=== PATIENT | female | born 1955 | race Caucasian/White ===

== ENCOUNTER 2016-07-29 07:53 | Day surgery (SDC) | payer MEDICARE ==
[2016-07-29] MEDS ORDERED: DIPRIVAN 200 MG/20 ML IV ONE (10:00)
--- NOTE | 2016-07-29 11:25 | XRAY ---
Indication: Left SI injection. Intraoperative fluoroscopy was provided for 19 seconds. 2 digital spot images submitted for interpretation demonstrates posterior spinal needle with the tip projecting over the superior left SI joint. Small amount of contrast injected for needle tip placement. Correlate with intraoperative findings/report.
--- NOTE | 2016-07-29 13:18 | XRAY ---
19 seconds of fluoroscopy was used in surgery for a left SI injection.
[2016-07-29] MEDS ORDERED: Lactated Ringers IV ONE (14:55)
[2016-07-29] MEDS ORDERED: Sensorcaine 0.25% 10 ML IJ ONE (14:55)
[2016-07-29] MEDS ORDERED: Kenalog-40 IM ONE (14:55)
[2016-07-29] MEDS ORDERED: Xylocaine-Mpf 2% 5 Ml Vial IJ ONE (14:55)
== END 2016-07-29 11:20 | disposition home or self-care (01) ==
LOC: SDC-PAIN 07:53
PROVIDERS: ATTEND Pain Medicine Interventional Pain Medicine
DX: M46.1 Sacroiliitis, not elsewhere classified (principal); M47.816 Spondylosis without myelopathy or radiculopathy, lumbar region; M51.26 Other intervertebral disc displacement, lumbar region; Z79.891 Long term (current) use of opiate analgesic
CPT/HCPCS: 01992; 27096; 72020; 77003; J2704; J3301; Q9967

== ENCOUNTER 2017-05-26 12:01 | Day surgery (SDC) | payer MEDICARE ==
[2017-05-26] MEDS ORDERED: DIPRIVAN 200 MG/20 ML IV ONE (12:02)
[2017-05-26] MEDS ORDERED: Lactated Ringers 1,000 ML IV ONE (12:02)
[2017-05-26] MEDS ORDERED: Marcaine 0.5% SDV 10 ML IJ ONE (12:02)
[2017-05-26] MEDS ORDERED: Xylocaine 1% Vial 30 ML PF IJ ONE (12:02)
--- NOTE | 2017-05-26 13:43 | XRAY ---
23 seconds fluoroscopy time in surgery for right MBB L3-4.
--- NOTE | 2017-05-26 13:47 | XRAY ---
Indication: Right L3-L4 MBB. Intraoperative fluoroscopy was provided for 23 seconds. 2 digital spot images submitted for interpretation demonstrates posterior spinal needle tips projecting over the expected course of the right L3 and L4 nerve roots. Correlate with intraoperative findings/report.
--- NOTE | 2017-05-26 15:31 | OP ---
DATE OF PROCEDURE: 05/26/2017 1228 SURGEON: Peace Carlson D.O. PREOPERATIVE DIAGNOSIS: Degenerative lumbar spine disease, spondylosis, low back pain. POSTOPERATIVE DIAGNOSIS: Degenerative lumbar spine disease, spondylosis, low back pain. PROCEDURES PERFORMED: Right L4-L3 medial branch block under fluoroscopic guidance. DESCRIPTION OF THE PROCEDURE: The patient was taken to the operating room and placed in the prone position on the table. Skin at the injection site was prepped and draped in sterile fashion. Under fluoroscopy, bony anatomy of the targeted injection site was visualized. Induction agent was given as per anesthesia while vital signs were monitored. Local anesthetic agent was introduced to anesthetize the skin and the subcutaneous tissue through the injection site. Under fluoroscopic guidance, a #20 gauge spinal needle was advanced into the target medial branch through the oblique approach. 0.5 cc of 1% lidocaine and 0.5 cc of 0.25% Marcaine preservative-free was injected into each of the targeted medial branch nerve. After the needle was being removed, the skin was cleansed with alcohol and then a bandage was applied. No complications or adverse consequences were observed. The patient was returned to the holding area until stabilized before discharge to home. After the patient has been fully recovered from anesthesia, the patient states 100% pain relief after the procedure. The patient will be followed up within ten days after the injection for re-evaluation.
== END 2017-05-26 13:15 | disposition home or self-care (01) ==
LOC: SDC-PAIN 12:01
PROVIDERS: ATTEND Internal Medicine
DX: M46.96 Unspecified inflammatory spondylopathy, lumbar region (principal); M54.5 Low back pain; M62.838 Other muscle spasm; Z79.891 Long term (current) use of opiate analgesic
CPT/HCPCS: 64493; 72020; 77003; J2001; J2704

== ENCOUNTER 2017-06-09 10:36 | Day surgery (SDC) | payer MEDICARE ==
[2017-06-09] MEDS ORDERED: Lactated Ringers 1,000 ML IV ONE (10:37)
[2017-06-09] MEDS ORDERED: Xylocaine 1% Vial 30 ML PF IJ ONE (10:37)
[2017-06-09] MEDS ORDERED: DIPRIVAN 200 MG/20 ML IV ONE (10:37)
[2017-06-09] MEDS ORDERED: Marcaine 0.5% SDV 10 ML IJ ONE (10:37)
--- NOTE | 2017-06-09 14:55 | OP ---
DATE OF PROCEDURE: 06/09/2017 1145 SURGEON: Peace Carlson D.O. PREOPERATIVE DIAGNOSIS: Degenerative lumbar spine disease, spondylosis, low back pain. POSTOPERATIVE DIAGNOSIS: Degenerative lumbar spine disease, spondylosis, low back pain. PROCEDURE PERFORMED: Right L4-L3 nerve medial branch block under fluoroscopic guidance. DESCRIPTION OF THE PROCEDURE: The patient was taken to the operating room and placed in the prone position on the table. Skin at the injection site was prepped and draped in sterile fashion. Under fluoroscopy, bony anatomy of the targeted injection site was visualized. Induction agent was given as per anesthesia while vital signs were monitored. Local anesthetic agent of 2 cc, 1% Lidocaine was introduced to anesthetize the skin and the subcutaneous tissue through the injection site. Under fluoroscopic guidance, a #20 gauge standard spinal needle was advanced into the target medial branch through the oblique approach. The preservative free 0.5 cc of 1% lidocaine and 0.5 cc of 0.25 - 0.5% Marcaine were injected into each of the targeted medial branch nerve. After the needle was being removed, the skin was cleansed with alcohol and then a bandage was applied. No complications or adverse consequences were observed. The patient was returned to the holding area until stabilized before discharge to home After the patient had been fully recovered from anesthesia, the patient states 70% pain reduction after the procedure. The patient will be followed up within ten days after the injection for re-evaluation.
--- NOTE | 2017-06-09 15:25 | XRAY ---
Indication: Right L3-L4 MBB. Intraoperative fluoroscopy was provided for 14 seconds. 3 digital spot images submitted for interpretation demonstrates posterior spinal needle tip projecting over the right L3-L4 facet. Correlate with intraoperative findings/report.
--- NOTE | 2017-06-09 15:37 | XRAY ---
14 seconds fluoroscopy time in surgery for right L3-4 MBB.
== END 2017-06-09 12:30 | disposition home or self-care (01) ==
LOC: SDC-PAIN 10:36
PROVIDERS: ATTEND Internal Medicine
DX: M47.816 Spondylosis without myelopathy or radiculopathy, lumbar region (principal); M46.96 Unspecified inflammatory spondylopathy, lumbar region; M54.5 Low back pain; M62.838 Other muscle spasm; Z79.891 Long term (current) use of opiate analgesic
CPT/HCPCS: 64493; 72020; 77003; J2001; J2704

== ENCOUNTER 2017-07-28 10:39 | Day surgery (SDC) | payer MEDICARE ==
[2017-07-28] MEDS ORDERED: Lactated Ringers 1,000 ML IV ONE (10:40)
[2017-07-28] MEDS ORDERED: DIPRIVAN 200 MG/20 ML IV ONE (10:40)
[2017-07-28] MEDS ORDERED: Ketamine HCl 50 MG/ML IV ONE (10:40)
[2017-07-28] MEDS ORDERED: Xylocaine-Mpf 2% 5 Ml Vial IJ ONE (10:40)
[2017-07-28] MEDS ORDERED: Marcaine 0.5% SDV 10 ML IJ ONE (10:40)
--- NOTE | 2017-07-28 12:15 | XRAY ---
Indication: Right L4-L5 RFA. Intraoperative fluoroscopy was provided for 16 seconds. Single digital spot image submitted for interpretation demonstrates posterior spinal needle tips projecting over the right L3 and L4 pedicles. Correlate with intraoperative findings/report.
--- NOTE | 2017-07-28 12:22 | XRAY ---
16 seconds fluoroscopy time in surgery for right L4-5 RFA.
--- NOTE | 2017-07-29 10:23 | OP ---
DATE OF PROCEDURE: 07/28/2017 1143 SURGEON: Peace Carlson D.O. PREOPERATIVE DIAGNOSIS: Degenerative lumbosacral spine disease, spondylosis, low back pain. POSTOPERATIVE DIAGNOSIS: Degenerative lumbosacral spine disease, spondylosis, low back pain. PROCEDURES PERFORMED: Right L4-L3 medial branch radiofrequency ablation under fluoroscopic guidance. DESCRIPTION OF PROCEDURE: The patient was taken to the operating room and laid in the prone position on the table. The skin over the injection site was prepped and draped in sterile fashion. Under fluoroscopy bony anatomy of the target injection site was visualized. Induction agent was given as per anesthesia while vital signs were monitored. Local anesthetic agent was introduced to anesthetize the skin and the subcutaneous tissue through the injection site. Under fluoroscopic guidance a standard size spinal needle with cannula was advanced into the target medial branch nerve as per standard protocol. Before the radiofrequency ablation motor and sensory nerve testing was conducted as per protocol. Under the safety guidance which ensured no motor nerves being involved, right L4-L3 medial branch radiofrequency ablation was conducted at 80 degrees Celsius for 90 seconds as per standard protocol. After the spinal needle with the cannula was removed the skin was cleansed with alcohol and then a bandage was applied. No complications or adverse occurrences were observed. The patient was returned to the holding area until stabilized before being discharged to home. The residual pain after the procedure is 0 out of 10. No muscle weakness after the procedure. The patient ambulated well. The patient will be followed up within 10 days after the procedure for re-evaluation.
== END 2017-07-28 12:30 | disposition home or self-care (01) ==
LOC: SDC-PAIN 10:39
PROVIDERS: ATTEND Internal Medicine
DX: M46.96 Unspecified inflammatory spondylopathy, lumbar region (principal); M54.5 Low back pain; M62.838 Other muscle spasm
CPT/HCPCS: 64635; 64636; 72020; 76000; J2704

== ENCOUNTER 2022-02-06 21:18 | Emergency (ER) | payer MEDICARE ==
[2022-02-06 21:45] VITALS: O2SAT 97
--- NOTE | 2022-02-06 22:17 | ERPHSYRPT ---
- History of Present Illness Time Seen by Provider: 02/06/22 21:35 Source: patient Exam Limitations: no limitations Patient Subjective Stated Complaint: pt states she has not been feeling well. has had cough, fever 100.1 at home, and back aches Triage Nursing Assessment: pt alert and oriented, answers questions approp. pt ambulatory with a steady gait noted. respirations nonlabored with coarse lung sounds noted bilat. skin warm and dry. Physician History: Patient is a 67-year-old female who presents with a complaint of chills and back pain for approximately 24 hours. She reports that she is out of medicine for he r fibromyalgia. And that her fibromyalgia is flaring. She reports chills and sweats last night she had a temperature 100.1 tonight she was 99 she could not get comfortable she been coughing nauseated vomiting. She has had no recent COVID test she was recently on steroids and a Z-Ramy for bronchitis. Timing/Duration: yesterday Cough Quality/Degree: productive cough Possible Cause: occasional episodes Associated Symptoms: fever, chills, cough, other (Nausea and vomiting) Allergies/Adverse Reactions: Penicillins Allergy (Verified 02/06/22 22:19) Sulfa (Sulfonamide Antibiotics) Allergy (Verified 02/06/22 22:19) Home Medications: Aspirin [Aspirin EC] 81 mg PO DAILY 02/07/16 [History] Pravastatin Sodium [Pravachol] 40 mg PO HS 02/07/16 [History] Pregabalin [Lyrica 100Mg] 150 mg PO BID 02/07/16 [History] Lisinopril 10 mg [Zestril 10 MG] 20 mg PO DAILY 08/11/16 [History] Meloxicam [Mobic] 7.5 mg PO DAILY 05/31/17 [History] Omeprazole 20 MG [Prilosec 20 mg] 20 mg PO DAILY 05/31/17 [History] Amlodipine Besylate 2.5 mg PO DAILY 02/06/22 [History] Metoprolol Succinate 50 mg [Toprol Xl 50 MG] 50 mg PO BID 02/06/22 [Hi story] Hx Tetanus, Diphtheria Vaccination/Date Given: No Hx Influenza Vaccination/Date Given: No Hx Pneumococcal Vaccination/Date Given: No Immunizations Up to Date: No Travel Risk - International Travel Have you traveled outside of the country in past 3 weeks: No - Coronavirus Screening Are you exhibiting any of the following symptoms?: Yes Symptoms: Fever, Cough: New Onset, Headaches/Body Aches/Fatigue Close contact with a COVID-19 positive Pt in past 14-21 Days: No - Vaccine Status Have you recieved a Covid-19 vaccination: No - Review of Systems Constitutional: Fever, Chills, Night Sweats Eyes: No Symptoms Ears, Nose, & Throat: No Symptoms Respiratory: Cough, No Dyspnea Cardiac: No Chest Pain, No Edema, No Syncope Abdominal/Gastrointestinal: Nausea, Vomiting, No Abdominal Pain, No Diarrhea Genitourinary Symptoms: No Dysuria Musculoskeletal: No Back Pain, No Neck Pain Skin: No Rash Neurological: No Dizziness, No Focal Weakness, No Sensory Changes Psychological: No Symptoms Endocrine: No Symptoms All Other Systems: Reviewed and Negative - Past Medical History Neurological History: Other Cardiac History: Coronary Artery Disease, High Cholesterol, Hypertension, Myocardial Infarction ([place]) Respiratory History: Asthma Endocrine Medical History: No Pertinent History Musculoskeletal History: Fibromyalgia, Osteoarthritis, Rheumatoid Arthritis Other Medical History: SX HX: LEFT THR 2018, LEFT ARTHROSCOPIC MENISCAL SURGERY 2017,. HYSTERECTOMY 20+ YEARS AGO - Past Surgical History Past Surgical History: Yes Musculoskeletal: Orthopedic Surgery Female Surgical History: Hysterectomy - Social History Smoking Status: Current every day smoker How long have you smoked: 50yrs Exposure to second hand smoke: No Drug Use: none Patient Lives Alone: No - Nursing Vital Signs Nursing Vital Signs: Initial Vital Signs Temperature 98.0 F 02/06/22 21:28 Pulse Rate 70 02/06/22 21:28 Respiratory Rate 16 02/06/22 21:28 Blood Pressure 189/84 02/06/22 21:28 O2 Sat by Pulse Oximetry 97 02/06/22 21:28 Pain Scale Pain Intensity 5 - Physical Exam General Appearance: mild distress, alert Eye Exam: PERRL/EOMI, eyes nml inspection Ears, Nose, Throat Exam: normal ENT inspection, TMs normal, pharynx normal, moist mucous membranes Neck Exam: normal inspection, non-tender, supple, full range of motion Respiratory Exam: normal breath sounds, lungs clear, No respiratory distress Cardiovascular Exam: regular rate/rhythm, normal heart sounds Gastrointestinal/Abdomen Exam: soft, No tenderness Back Exam: normal inspection, No CVA tenderness, No vertebral tenderness Extremity Exam: normal inspection, normal range of motion Neurologic Exam: alert, oriented x 3, cooperative, normal mood/affect, sensation nml, No motor deficits Skin Exam: normal color, warm, dry, No rash Lymphatic Exam: No adenopathy SpO2 Interpretation: normal SpO2: 97 O2 Delivery: Room Air - Course Nursing assessment & vital signs reviewed: Yes - Radiology Exams Chest X-ray Interpretation: Interpreted by me, Negative Ordered Tests: Active Orders 24 hr Category Date Time Status CHEST 1 VIEW (PORTABLE) Stat Exams 02/06/22 21:33 Taken CBC W DIFF Stat Lab 02/06/22 22:20 Completed CMP Stat Lab 02/06/22 22:20 Completed CULTURE,URINE Stat Lab 02/06/22 23:04 Received Lactic Acid Stat Lab 02/06/22 21:32 Completed UA W/RFX CULTURE Stat Lab 02/06/22 23:04 Completed Lab/Rad Data: Laboratory Result Diagrams 02/06/22 22:20 02/06/22 22:20 Laboratory Results 02/06/22 02/06/22 02/06/22 Range/Units 23:04 22:20 22:20 WBC (4.0-10.5) x10^3/uL RBC (4.1-5.4) x10^6/uL Hgb (12.0-16.0) g/dL Hct (35-47) % MCV (78-100) fL MCH (26-32) pg MCHC (32-36) g/dL RDW (11.5-14.0) % Plt Count (150-450) x10^3/uL MPV (7.5-11.0) fL Gran % (36.0-66.0) % Immature Gran % (Auto) (0.00-0.4) % Nucleat RBC Rel Count (0.00-0.1) % Eos # (Auto) (0-0.5) x10^3/uL Immature Gran # (Auto) (0.00-0.03) x10^3u/L Absolute Lymphs (auto) (1.0-4.6) x10^3/uL Absolute Monos (auto) (0.0-1.3) x10^3/uL Absolute Nucleated RBC (0.00-0.01) x10^3u/L Lymphocytes % (24.0-44.0) % Monocytes % (0.0-12.0) % Eosinophils % (0.00-5.0) % Basophils % (0.0-0.4) % Absolute Granulocytes (1.4-6.9) x10^3/uL Basophils # (0-0.4) x10^3/uL Sodium 138 (137-145) mmol/L Potassium 3.9 (3.5-5.1) mmol/L Chloride 107 (98-107) mmol/L Carbon Dioxide 26 (22-30) mmol/L Anion Gap 9.0 (5-15) MEQ/L BUN 11 (7-17) mg/dL Creatinine 0.85 (0.52-1.04) mg/dL Estimated GFR > 60.0 ML/MIN Glucose 109 H (74-106) mg/dL Lactic Acid (0.4-2.0) Calcium 9.1 (8.4-10.2) mg/dL Total Bilirubin 0.50 (0.2-1.3) mg/dL AST 24 (14-36) U/L ALT 16 (0-35) U/L Alkaline Phosphatase 102 (38-126) U/L Serum Total Protein 7.4 (6.3-8.2) g/dL Albumin 4.3 (3.5-5.0) g/dL Urinalys Dipstick Clnc MAIN LAB Urine Color YELLOW (YELLOW) Urine Appearance CLEAR (CLEAR) Urine pH 7.0 (5-6) Ur Specific [place] 1.025 (1.005-1.025) POC Urine Protein Conf 30 (Negative) Urine Ketones SMALL-15 (NEGATIVE) Urine Nitrite NEGATIVE (NEGATIVE) Urine Bilirubin NEGATIVE (NEGATIVE) Urine Urobilinogen 0.2 (0-1) mg/dL Urine Leukocytes SMALL (NEGATIVE) Urine WBC (Auto) 16-25 (0-5) /HPF Urine RBC (Auto) 6-10 (0-2) /HPF U Epithel Cells (Auto) RARE (FEW) /HPF Urine Bacteria (Auto) FEW (NEGATIVE) /HPF Urine RBC TRACE-LYSED (0-5) Erasto/ul Urine Mucus (Auto) SLIGHT (NEGATIVE) /HPF Ur Culture Indicated? YES Urine Glucose NEGATIVE (NEGATIVE) mg/dL Influenza Type A Ag NEGATIVE (NEGATIVE) Influenza Type B Ag NEGATIVE (NEGATIVE) RSV (PCR) NEGATIVE (Negative) SARS-CoV-2 (PCR) NEGATIVE (NEGATIVE) 02/06/22 02/06/22 Range/Units 22:20 21:32 WBC 7.2 (4.0-10.5) x10^3/uL RBC 3.99 L (4.1-5.4) x10^6/uL Hgb 12.4 (12.0-16.0) g/dL Hct 37.0 (35-47) % MCV 92.7 (78-100) fL MCH 31.1 (26-32) pg MCHC 33.5 (32-36) g/dL RDW 13.7 (11.5-14.0) % Plt Count 293 (150-450) x10^3/uL MPV 10.4 (7.5-11.0) fL Gran % 58.1 (36.0-66.0) % Immature Gran % (Auto) 0.3 (0.00-0.4) % Nucleat RBC Rel Count 0.0 (0.00-0.1) % Eos # (Auto) 0.07 (0-0.5) x10^3/uL Immature Gran # (Auto) 0.02 (0.00-0.03) x10^3u/L Absolute Lymphs (auto) 2.38 (1.0-4.6) x10^3/uL Absolute Monos (auto) 0.53 (0.0-1.3) x10^3/uL Absolute Nucleated RBC 0.00 (0.00-0.01) x10^3u/L Lymphocytes % 32.9 (24.0-44.0) % Monocytes % 7.3 (0.0-12.0) % Eosinophils % 1.0 (0.00-5.0) % Basophils % 0.4 (0.0-0.4) % Absolute Granulocytes 4.21 (1.4-6.9) x10^3/uL Basophils # 0.03 (0-0.4) x10^3/uL Sodium (137-145) mmol/L Potassium (3.5-5.1) mmol/L Chloride (98-107) mmol/L Carbon Dioxide (22-30) mmol/L Anion Gap (5-15) MEQ/L BUN (7-17) mg/dL Creatinine (0.52-1.04) mg/dL Estimated GFR ML/MIN Glucose (74-106) mg/dL Lactic Acid 0.8 (0.4-2.0) Calcium (8.4-10.2) mg/dL Total Bilirubin (0.2-1.3) mg/dL AST (14-36) U/L ALT (0-35) U/L Alkaline Phosphatase (38-126) U/L Serum Total Protein (6.3-8.2) g/dL Albumin (3.5-5.0) g/dL Urinalys Dipstick Clnc Urine Color (YELLOW) Urine Appearance (CLEAR) Urine pH (5-6) Ur Specific [place] (1.005-1.025) POC Urine Protein Conf (Negative) Urine Ketones (NEGATIVE) Urine Nitrite (NEGATIVE) Urine Bilirubin (NEGATIVE) Urine Urobilinogen (0-1) mg/dL Urine Leukocytes (NEGATIVE) Urine WBC (Auto) (0-5) /HPF Urine RBC (Auto) (0-2) /HPF U Epithel Cells (Auto) (FEW) /HPF Urine Bacteria (Auto) (NEGATIVE) /HPF Urine RBC (0-5) Erasto/ul Urine Mucus (Auto) (NEGATIVE) /HPF Ur Culture Indicated? Urine Glucose (NEGATIVE) mg/dL Influenza Type A Ag (NEGATIVE) Influenza Type B Ag (NEGATIVE) RSV (PCR) (Negative) SARS-CoV-2 (PCR) (NEGATIVE) - Progress Progress: unchanged Air Movement: good Blood Culture(s) Obtained: No Antibiotics given: Yes - Departure Departure Disposition: Home Clinical Impression: Urinary tract infection Condition: Stable Critical Care Time: No Referrals: LUISA MURRY MD [Primary Care Provider] - Follow up/PCP as directed Instructions: Fever, Adult (DC), Urinary Tract Infection, Adult (DC) Prescriptions: Ciprofloxacin [Cipro 500 MG] 500 mg PO BID #14 tablet Pregabalin [Lyrica 150Mg] 150 mg PO BID 30 Days #60 cap
[2022-02-06 22:31] LABS: Absolute Neutrophil Ct (ANC) 4.21 x10^3/uL (1.4-6.9); Basophil (Absolute #) 0.03 x10^3/uL (0-0.4); Eosinophil (Absolute #) 0.07 x10^3/uL (0-0.5); Hemoglobin 12.4 g/dL (12.0-16.0); Lymphocyte (Absolute #) 2.38 x10^3/uL (1.0-4.6); Lymphocytes % 32.9 % (24.0-44.0); Mean Cell Volume 92.7 fL (78-100); Mean Corpuscular Hemoglobin 31.1 pg (26-32); Mean Corpuscular Hgb Concent. 33.5 g/dL (32-36); Mean Platelet Volume 10.4 fL (7.5-11.0); Monocyte (Absolute #) 0.53 x10^3/uL (0.0-1.3); Monocytes % 7.3 % (0.0-12.0); Neutrophil % 58.1 % (36.0-66.0); Platelet Count 293 x10^3/uL (150-450); Red Blood Count 3.99 x10^6/uL (4.1-5.4); Red Cell Distribution Width 13.7 % (11.5-14.0); White Blood Count 7.2 x10^3/uL (4.0-10.5)
[2022-02-06 22:43] LABS: ALBUMIN 4.3 g/dL (3.5-5.0); ALKALINE PHOSPHATASE 102 U/L (38-126); BLOOD UREA NITROGEN 11 mg/dL (7-17); CHLORIDE 107 mmol/L (98-107); Calcium 9.1 mg/dL (8.4-10.2); Carbon Dioxide 26 mmol/L (22-30); Creatinine 1 0.85 mg/dL (0.52-1.04); EST GLOMERULAR FILTRATION RATE > 60.0 ML/MIN; Glucose 109 mg/dL (74-106); Potassium 3.9 mmol/L (3.5-5.1); SGOT/AST 24 U/L (14-36); SGPT/ALT 16 U/L (0-35); SODIUM 138 mmol/L (137-145); Total Protein 7.4 g/dL (6.3-8.2)
[2022-02-06 23:05] VITALS: PULSE 71
[2022-02-06 23:08] LABS: INFLUENZA A NEGATIVE (NEGATIVE); INFLUENZA B NEGATIVE (NEGATIVE); RESPIRATORY SYNCTIAL VIRUS NEGATIVE (Negative); SARS-CoV-2 Xpert Express NEGATIVE (NEGATIVE)
[2022-02-06 23:17] LABS: Appearance CLEAR (CLEAR)
[2022-02-06 23:18] LABS: Bilirubin NEGATIVE (NEGATIVE); Glucose NEGATIVE (NEGATIVE); Ketones SMALL-15 (NEGATIVE)
[2022-02-06 23:19] LABS: Dipstick done @ ? MAIN LAB; Nitrite NEGATIVE (NEGATIVE); Protein,Urine Dip 30 (Negative); RBC TRACE-LYSED Ery/ul (0-5); Specific Gravity 1.025 (1.005-1.025); Urobilinogen 0.2 mg/dL (0-1)
[2022-02-06 23:21] LABS: Bacteria FEW /HPF (NEGATIVE); Epithelial Cells RARE /HPF (FEW); Mucus SLIGHT /HPF (NEGATIVE)
[2022-02-06 23:22] LABS: Urine Cultured Indicated? YES
[2022-02-06] MEDS ORDERED: Cipro 500 MG PO STA (23:34)
[2022-02-06] MEDS ORDERED: LYRICA 150MG PO STA (23:35)
[2022-02-06] MEDS ORDERED: Cipro 500 MG ONE (23:44)
[2022-02-06 23:56] VITALS: BP 151/82
--- NOTE | 2022-02-07 08:09 | XRAY ---
Indication: Fever and cough. Suspect Covid 19. Comparison: August 16, 2020 Portable chest remains inflated and clear. Heart not enlarged. Bony thorax intact again with osteopenia and mild degenerative changes. No new/acute findings.
== END 2022-02-06 23:56 | disposition home or self-care (01) ==
LOC: ED 21:18
DX: N39.0 Urinary tract infection, site not specified (principal); R50.9 Fever, unspecified; M54.9 Dorsalgia, unspecified; R05.9 Cough, unspecified; R11.2 Nausea with vomiting, unspecified; E78.5 Hyperlipidemia, unspecified; I10 Essential (primary) hypertension; Z72.0 Tobacco use; Z79.899 Other long term (current) drug therapy; Z28.310 Unvaccinated for COVID-19
CPT/HCPCS: 0241U; 36415; 71045; 80053; 81015; 83605; 85025; 87086; 99283; A9270-GY

== ENCOUNTER 2023-01-05 14:41 | Emergency (ER) | payer MEDICARE ==
[2023-01-05 15:03] VITALS: BP 150/93; TEMP 99
[2023-01-05 15:04] VITALS: O2SAT 96
[2023-01-05] MEDS ORDERED: Sodium Chloride 0.9% 1000 ML 1,000 ML ONE (15:13)
[2023-01-05] MEDS ORDERED: Sodium Chloride 0.9% 1000 ML 1,000 ML IV SCH (15:15)
[2023-01-05 15:17] LABS: Absolute Neutrophil Ct (ANC) 4.14 x10^3/uL (1.4-6.9); BASOPHIL % 0.3 % (0.0-0.4); Basophil (Absolute #) 0.02 x10^3/uL (0-0.4); Eosinophil (Absolute #) 0 x10^3/uL (0-0.5); Hematocrit 39.8 % (35-47); Hemoglobin 13.4 g/dL (12.0-16.0); IMMATURE GRAN # 0.02 x10^3u/L (0.00-0.03); IMMATURE GRAN % 0.3 % (0.00-0.4); Lymphocyte (Absolute #) 1.86 x10^3/uL (1.0-4.6); Mean Cell Volume 93.6 fL (78-100); Mean Corpuscular Hemoglobin 31.5 pg (26-32); Mean Corpuscular Hgb Concent. 33.7 g/dL (32-36); Mean Platelet Volume 10.3 fL (7.5-11.0); Monocyte (Absolute #) 0.37 x10^3/uL (0.0-1.3); Monocytes % 5.8 % (0.0-12.0); Neutrophil % 64.6 % (36.0-66.0); Platelet Count 255 x10^3/uL (150-450); Red Blood Count 4.25 x10^6/uL (4.1-5.4); Red Cell Distribution Width 13.7 % (11.5-14.0); White Blood Count 6.4 x10^3/uL (4.0-10.5)
[2023-01-05] MEDS ORDERED: Zofran 4 MG/2 ML VIAL ONE (15:20)
[2023-01-05] MEDS ORDERED: Zofran 4 MG/2 ML VIAL IV ONE (15:20)
[2023-01-05 15:23] LABS: Appearance Clear (Clear); Bacteria None Seen /HPF (None Seen); Bilirubin Negative (Negative); Blood Moderate (Negative); Epithelial Cells Few /HPF (None Seen); Glucose, Urine Negative (Negative); Hyaline Casts NONE SEEN /LPF (0-2); Ketones 15 (Negative); Leukocyte Esterase Moderate (Negative); Nitrite Negative (Negative); Ph 6.5 (4.6-8.0); Protein,Urine Dip 300 (Negative); WBC 21-50 /HPF (0-5)
[2023-01-05 15:25] LABS: ADD URINE CULTURE? YES (NO)
[2023-01-05 15:37] LABS: ALBUMIN 4.5 g/dL (3.5-5.0); ALKALINE PHOSPHATASE 129 U/L (38-126); ANION GAP 14.5 MEQ/L (5-15); BLOOD UREA NITROGEN 13 mg/dL (7-17); CHLORIDE 104 mmol/L (98-107); Calcium 9.4 mg/dL (8.4-10.2); Carbon Dioxide 26 mmol/L (22-30); Creatinine 1 0.74 mg/dL (0.52-1.04); EST GLOMERULAR FILTRATION RATE > 60.0 ML/MIN; Glucose 116 mg/dL (74-106); LIPASE 65 U/L (23-300); Potassium 4.2 mmol/L (3.5-5.1); SGOT/AST 29 U/L (14-36); SGPT/ALT 17 U/L (0-35); SODIUM 140 mmol/L (137-145); Total Protein 7.4 g/dL (6.3-8.2)
--- NOTE | 2023-01-05 15:49 | ERPHSYRPT ---
- History of Present Illness Time Seen by Provider: 01/05/23 15:42 Historian: patient Exam Limitations: no limitations Patient Subjective Stated Complaint: Nausea Triage Nursing Assessment: Patient ambulated back to ED using cane and transferred self to bed. Patient A+O X3. Patient's skin pink, warm and dry. Patient complains of nausea, abdominal pain and headache since this am. Patient complains of slight non productive coigh. Patient states head and abdomen hurt 5/10. Abdomen soft and round. BS X 4. Patient denies vomiting or diarrhea. Physician History: Patient is a 67-year-old female presents to our emergency department for evaluation of abdominal pain, nausea, slight frontal headache and a cough. Symptoms started today. Patient states she feels unwell. Abdominal pain described as an ache that is generalized. Pain rated 5 out of 10. Patient admits to slight dysuria. No fever. No nausea vomiting or diaphoresis. No diarrhea. No rash. Symptoms are constant. Symptoms are moderate in intensity. No specific worsening improving factors. No sick contacts. Patient voices no other complaints or concerns at this time. Portions of this note were created with voice recognition technology. There may be grammatical, spelling, punctuation or sound alike errors Timing/Duration: today Activities at Onset: none Quality: aching Abdominal Pain Onset Location: generalized abdomen Pain Radiation: no radiation Severity of Pain-Max: moderate Severity of Pain-Current: mild Modifying Factors: Improves With: nothing Associated Symptoms: headache, No diarrhea (Frontal headache no neck pain. No photophobia. No meningeal signs.), No nausea, No vomiting Allergies/Adverse Reactions: Penicillins Allergy (Verified 01/05/23 14:56) Sulfa (Sulfonamide Antibiotics) Allergy (Verified 01/05/23 14:56) Home Medications: Aspirin [Aspirin EC] 81 mg PO DAILY 02/07/16 [History] Pravastatin Sodium [Pravachol] 40 mg PO HS 02/07/16 [History] Pregabalin [Lyrica 100Mg] 150 mg PO BID 02/07/16 [History] Lisinopril 10 mg [Zestril 10 MG] 20 mg PO DAILY 08/11/16 [History] Meloxicam [Mobic] 7.5 mg PO DAILY 05/31/17 [History] Omeprazole 20 MG [Prilosec 20 mg] 20 mg PO DAILY 05/31/17 [History] Amlodipine Besylate 2.5 mg PO DAILY 02/06/22 [History] Metoprolol Succinate 50 mg [Toprol Xl 50 MG] 50 mg PO BID 02/06/22 [ History] Hx Tetanus, Diphtheria Vaccination/Date Given: No Hx Influenza Vaccination/Date Given: No Hx Pneumococcal Vaccination/Date Given: No Immunizations Up to Date: Yes Travel Risk - International Travel Have you traveled outside of the country in past 3 weeks: No - Coronavirus Screening Are you exhibiting any of the following symptoms?: No Close contact with a COVID-19 positive Pt in past 14-21 Days: No - Vaccine Status Have you recieved a Covid-19 vaccination: No 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: [employer] - Review of Systems Constitutional: No Symptoms, No Fever, No Chills Eyes: No Symptoms Ears, Nose, & Throat: No Symptoms Respiratory: No Symptoms, No Cough, No Dyspnea Cardiac: No Symptoms, No Chest Pain, No Edema, No Syncope Abdominal/Gastrointestinal: No Symptoms, No Abdominal Pain, No Nausea, No Vomiting, No Diarrhea Genitourinary Symptoms: No Symptoms, No Dysuria Musculoskeletal: No Symptoms, No Back Pain, No Neck Pain Skin: No Symptoms, No Rash Neurological: No Symptoms, No Dizziness, No Focal Weakness, No Sensory Changes Psychological: No Symptoms Endocrine: No Symptoms Hematologic/Lymphatic: No Symptoms Immunological/Allergic: No Symptoms All Other Systems: Reviewed and Negative - Past Medical History Neurological History: Other Cardiac History: Coronary Artery Disease, High Cholesterol, Hypertension, Myocardial Infarction ([place]) Respiratory History: Asthma Endocrine Medical History: No Pertinent History Musculoskeletal History: Fibromyalgia, Osteoarthritis, Rheumatoid Arthritis Other Medical History: SX HX: LEFT THR 2018, LEFT ARTHROSCOPIC MENISCAL SURGERY 2017,. HYSTERECTOMY 20+ YEARS AGO - Past Surgical History Past Surgical History: Yes Musculoskeletal: Orthopedic Surgery Female Surgical History: Hysterectomy - Social History Smoking Status: Current every day smoker How long have you smoked: 50yrs Exposure to second hand smoke: No Drug Use: none Patient Lives Alone: No - Nursing Vital Signs Nursing Vital Signs: Initial Vital Signs Temperature 99.0 F 01/05/23 14:57 Pulse Rate 73 01/05/23 14:57 Respiratory Rate 18 01/05/23 14:57 Blood Pressure 150/93 01/05/23 14:57 O2 Sat by Pulse Oximetry 98 01/05/23 14:57 Pain Scale Pain Intensity 5 - Physical Exam General Appearance: no apparent distress, alert Eye Exam: PERRL/EOMI, eyes nml inspection Ears, Nose, Throat Exam: normal ENT inspection, pharynx normal, moist mucous membranes Neck Exam: normal inspection, non-tender, supple, full range of motion Respiratory Exam: normal breath sounds, lungs clear, airway intact, No respiratory distress Cardiovascular Exam: regular rate/rhythm, normal heart sounds, normal peripheral pulses Gastrointestinal/Abdomen Exam: soft, No tenderness, No mass Back Exam: normal inspection, normal range of motion, No CVA tenderness, No vertebral tenderness Extremity Exam: normal inspection, normal range of motion, pelvis stable Neurologic Exam: alert, oriented x 3, cooperative, normal mood/affect, nml cerebellar function, sensation nml, No motor deficits Skin Exam: normal color, warm, dry Lymphatic Exam: No adenopathy SpO2 Interpretation: normal SpO2: 96 O2 Delivery: Room Air - Course Nursing assessment & vital signs reviewed: Yes - Radiology Exams Chest X-ray Interpretation: Teleradiologist Report (Negative chest x-ray. No acute findings.) - CT Exams Abdomen/Pelvis CT Interpretation: Tele-radiologist Report (Right hip degenerative arthritis, atherosclerotic disease granulomatous disease otherwise no acute finding) Ordered Tests: Active Orders 24 hr Category Date Time Status Regional Marketing Manager STAT Care 01/05/23 15:03 Active IV Insertion STAT Care 01/05/23 15:02 Active Pulse Oximetry (ED) STAT Care 01/05/23 15:02 Active ABDOMEN AND PELVIS W/0 CONTRAS [CT] Stat Exams 01/05/23 15:38 Completed CHEST 1 VIEW (PORTABLE) Stat Exams 01/05/23 15:41 Completed CBC W DIFF Stat Lab 01/05/23 15:12 Completed CMP Stat Lab 01/05/23 15:06 Completed CULTURE,URINE Stat Lab 01/05/23 15:06 Received LIPASE Stat Lab 01/05/23 15:06 Completed TROPONIN Q4H Lab 01/05/23 15:06 Completed TROPONIN Q4H Lab 01/05/23 19:15 Ordered TROPONIN Q4H Lab 01/05/23 23:15 Ordered UA W/RFX UR CULTURE Stat Lab 01/05/23 15:06 Completed Medication Summary Generic Name Dose Route Start Last Admin Trade Name Freq PRN Reason Stop Dose Admin Sodium Chloride 1,000 mls @ 100 mls/hr 01/05/23 15:15 01/05/23 15:16 Sodium Chloride 0.9% 1000 Ml IV 02/04/23 15:14 100 mls/hr .Q10H ELLA Administration Discontinued Medications Generic Name Dose Route Start Last Admin Trade Name Cara PRN Reason Stop Dose Admin Nitrofurantoin Macrocrystals 100 mg 01/05/23 17:23 01/05/23 17:24 Nitrofurantoin Macro 100 Mg Capsule PO 01/05/23 17:24 100 mg STAT ONE Administration Nitrofurantoin Macrocrystals Confirm 01/05/23 17:24 Nitrofurantoin Macro 100 Mg Capsule Administered 01/05/23 17:25 Dose 100 mg .ROUTE .STK-MED ONE Ondansetron HCl 4 mg 01/05/23 15:20 01/05/23 15:21 Ondansetron Hcl 4 Mg/2 Ml Vial IV 01/05/23 15:21 4 mg STAT ONE Administration Ondansetron HCl Confirm 01/05/23 15:20 Ondansetron Hcl 4 Mg/2 Ml Vial Administered 01/05/23 15:21 Dose 4 mg .ROUTE .STK-MED ONE Lab/Rad Data: Laboratory Result Diagrams 01/05/23 15:12 01/05/23 15:06 Laboratory Results 01/05/23 01/05/23 01/05/23 Range/Units 15:12 15:06 15:06 WBC 6.4 (4.0-10.5) x10^3/uL RBC 4.25 (4.1-5.4) x10^6/uL Hgb 13.4 (12.0-16.0) g/dL Hct 39.8 (35-47) % MCV 93.6 (78-100) fL MCH 31.5 (26-32) pg MCHC 33.7 (32-36) g/dL RDW 13.7 (11.5-14.0) % Plt Count 255 (150-450) x10^3/uL MPV 10.3 (7.5-11.0) fL Gran % 64.6 (36.0-66.0) % Immature Gran % (Auto) 0.3 (0.00-0.4) % Nucleat RBC Rel Count 0.0 (0.00-0.1) % Eos # (Auto) 0 (0-0.5) x10^3/uL Immature Gran # (Auto) 0.02 (0.00-0.03) x10^3u/L Absolute Lymphs (auto) 1.86 (1.0-4.6) x10^3/uL Absolute Monos (auto) 0.37 (0.0-1.3) x10^3/uL Absolute Nucleated RBC 0.00 (0.00-0.01) x10^3u/L Lymphocytes % 29.0 (24.0-44.0) % Monocytes % 5.8 (0.0-12.0) % Eosinophils % 0.0 (0.00-5.0) % Basophils % 0.3 (0.0-0.4) % Absolute Granulocytes 4.14 (1.4-6.9) x10^3/uL Basophils # 0.02 (0-0.4) x10^3/uL Sodium (137-145) mmol/L Potassium (3.5-5.1) mmol/L Chloride (98-107) mmol/L Carbon Dioxide (22-30) mmol/L Anion Gap (5-15) MEQ/L BUN (7-17) mg/dL Creatinine (0.52-1.04) mg/dL Estimated GFR ML/MIN Glucose (74-106) mg/dL Calcium (8.4-10.2) mg/dL Total Bilirubin (0.2-1.3) mg/dL AST (14-36) U/L ALT (0-35) U/L Alkaline Phosphatase (38-126) U/L Troponin I < 0.012 (0.000-0.034) ng/mL Serum Total Protein (6.3-8.2) g/dL Albumin (3.5-5.0) g/dL Lipase (23-300) U/L Urine Color (Yellow) Urine Appearance (Clear) Urine pH (4.6-8.0) Ur Specific [place] (1.005-1.030) Urine Protein (Negative) Urine Glucose (UA) (Negative) mg/dL Urine Ketones (Negative) Urine Blood (Negative) Urine Nitrite (Negative) Urine Bilirubin (Negative) Urine Urobilinogen (0.2) mg/dL Ur Leukocyte Esterase (Negative) U Hyaline Cast (Auto) (0-2) /LPF Urine Microscopic RBC (0-5) /HPF Urine Microscopic WBC (0-5) /HPF Ur Epithelial Cells (None Seen) /HPF Urine Bacteria (None Seen) /HPF Urine Culture Reflexed (NO) Influenza Type A Ag NEGATIVE (NEGATIVE) Influenza Type B Ag NEGATIVE (NEGATIVE) RSV (PCR) NEGATIVE (NEGATIVE) SARS-CoV-2 (PCR) NEGATIVE (NEGATIVE) 01/05/23 01/05/23 Range/Units 15:06 15:06 WBC (4.0-10.5) x10^3/uL RBC (4.1-5.4) x10^6/uL Hgb (12.0-16.0) g/dL Hct (35-47) % MCV (78-100) fL MCH (26-32) pg MCHC (32-36) g/dL RDW (11.5-14.0) % Plt Count (150-450) x10^3/uL MPV (7.5-11.0) fL Gran % (36.0-66.0) % Immature Gran % (Auto) (0.00-0.4) % Nucleat RBC Rel Count (0.00-0.1) % Eos # (Auto) (0-0.5) x10^3/uL Immature Gran # (Auto) (0.00-0.03) x10^3u/L Absolute Lymphs (auto) (1.0-4.6) x10^3/uL Absolute Monos (auto) (0.0-1.3) x10^3/uL Absolute Nucleated RBC (0.00-0.01) x10^3u/L Lymphocytes % (24.0-44.0) % Monocytes % (0.0-12.0) % Eosinophils % (0.00-5.0) % Basophils % (0.0-0.4) % Absolute Granulocytes (1.4-6.9) x10^3/uL Basophils # (0-0.4) x10^3/uL Sodium 140 (137-145) mmol/L Potassium 4.2 (3.5-5.1) mmol/L Chloride 104 (98-107) mmol/L Carbon Dioxide 26 (22-30) mmol/L Anion Gap 14.5 (5-15) MEQ/L BUN 13 (7-17) mg/dL Creatinine 0.74 (0.52-1.04) mg/dL Estimated GFR > 60.0 ML/MIN Glucose 116 H (74-106) mg/dL Calcium 9.4 (8.4-10.2) mg/dL Total Bilirubin 0.50 (0.2-1.3) mg/dL AST 29 (14-36) U/L ALT 17 (0-35) U/L Alkaline Phosphatase 129 H (38-126) U/L Troponin I (0.000-0.034) ng/mL Serum Total Protein 7.4 (6.3-8.2) g/dL Albumin 4.5 (3.5-5.0) g/dL Lipase 65 (23-300) U/L Urine Color Yellow (Yellow) Urine Appearance Clear (Clear) Urine pH 6.5 (4.6-8.0) Ur Specific [place] 1.020 (1.005-1.030) Urine Protein 300 A (Negative) Urine Glucose (UA) Negative (Negative) mg/dL Urine Ketones 15 A (Negative) Urine Blood Moderate A (Negative) Urine Nitrite Negative (Negative) Urine Bilirubin Negative (Negative) Urine Urobilinogen 1.0 A (0.2) mg/dL Ur Leukocyte Esterase Moderate A (Negative) U Hyaline Cast (Auto) NONE SEEN (0-2) /LPF Urine Microscopic RBC 11-20 A (0-5) /HPF Urine Microscopic WBC 21-50 A (0-5) /HPF Ur Epithelial Cells Few (None Seen) /HPF Urine Bacteria None Seen (None Seen) /HPF Urine Culture Reflexed YES (NO) Influenza Type A Ag (NEGATIVE) Influenza Type B Ag (NEGATIVE) RSV (PCR) (NEGATIVE) SARS-CoV-2 (PCR) (NEGATIVE) - Progress Progress: improved Progress Note: Patient is a 67-year-old female presents to our ED for evaluation of headache cough abdominal pain. Physical exam essentially nonremarkable. Testing includes CBC CMP was essentially nonremarkable. No leukocytosis. Chest x-ray ordered to evaluate cough to rule out pneumonia. Chest x-ray negative for acute pathology. No pneumonia. COVID testing negative. CT abdomen pelvis ordered as patient complains of abdominal pain. No acute findings observed. Right hip degenerative arthritis as well as atherosclerotic and old granulomatous disease. Urinalysis reveals a urinary tract infection. Patient received an oral dose of Macrobid in our ED. A prescription for Macrobid was forwarded to patient's pharmacy. Patient also received normal saline and Zofran for nausea. Patient feels well. She is requesting discharge. Patient advised to follow-up with her primary care doctor within 48 hours for reevaluation. Patient agrees to do so. She voices no other complaints or concerns at this time. Portions of this note were created with voice recognition technology. There may be grammatical, spelling, punctuation or sound alike errors Complexity of problems addressed is moderate acute complicated with systemic manifestations No critical care time Complex of data reviewed and analyzed is moderate. Test ordered. Test reviewed and analyzed. Clinical correlation made between findings and history and physical examination. Patient advised that she is experiencing dysuria. Urinalysis confirms a urinary tract infection. Testing otherwise negative. Risk of complication and or risk of morbidity/mortality patient management is moderate. A prescription for Macrobid forwarded to patient's pharmacy. Vital stable. Diagnosis is urinary tract infection. Plan of care established for shared decision making. Time spent to discharge patient is approximately 15 minutes. No social determinants of health present to impede follow-up. Patient voices no other complaints or concerns at this time. Portions of this note were created with voice recognition technology. There may be grammatical, spelling, punctuation or sound alike errors 01/05/23 17:31 Counseled pt/family regarding: lab results, diagnosis, need for follow-up, rad results - Departure Departure Disposition: Home Clinical Impression: Urinary tract infection Condition: Stable Critical Care Time: No Referrals: LUISA MURRY MD [Primary Care Provider] - Follow up/PCP as directed Instructions: Urinary Tract Infection, Adult ED Additional Instructions: Discharge/Care Plan STEFANIA STYLES CHEPE was seen on 01/05/23 in the Emergency Room. The patient was counseled regarding Diagnosis,Lab results, Imaging studies, need for follow up and when to return to the Emergency Room. Prescriptions given: Discharge Note I have spoken with the patient and/or caregivers. I have explained the patient's condition, diagnosis and treatment plan based on the information available to me at this time. I have answered the patient's and/or caregiver's questions and addressed any concerns. The patient and/or caregivers have as good understanding of the patient's diagnosis, condition and treatment plan as can be expected at this point. The vital signs have been stable. The patient's condition is stable and appropriate for discharge from the emergency department. The patient will pursue further outpatient evaluation with the primary care physician or other designated or consulting physician as outlined in the discharge instructions. The patient and/or caregivers are agreeable to this plan of care and follow-up instructions have been explained in detail. The patient and/or caregivers have received these instruction. The patient/and or caregivers are aware that any significant change in condition or worsening of symptoms should prompt an immediate return to this or the closest emergency department or call 911. Prescriptions: Nitrofurantoin Macro 100 mg [Macrobid 100MG Capsule] 100 mg PO BID 7 Days #14 cap
[2023-01-05 15:53] LABS: INFLUENZA A NEGATIVE (NEGATIVE); INFLUENZA B NEGATIVE (NEGATIVE); RESPIRATORY SYNCTIAL VIRUS NEGATIVE (NEGATIVE); SARS-CoV-2 Xpert Express NEGATIVE (NEGATIVE)
--- NOTE | 2023-01-05 16:30 | XRAY ---
Indication: Pain and nausea. Multiple contiguous axial images obtained through the abdomen and pelvis without contrast. Comparison: None Lung bases clear of infiltrate and effusion. Heart not enlarged. Beam artifact from left hip prosthesis. Noncontrasted stomach and bowel loops appear nonobstructed with normal appendix. A few tiny hepatic/splenic calcified granulomas. Previous hysterectomy. No free fluid/air. Remaining liver, gallbladder, pancreas, spleen, adrenal glands, kidneys, ureters, and bladder are unremarkable for noncontrast exam. Mild scattered aortoiliac calcifications without AAA. Osseous structures intact with osteopenia and minimal/mild degenerative changes throughout spine. Markedly advanced right hip degenerative changes. No ventral or inguinal hernias. Impression: 1. Beam artifact from left hip prosthesis. 2. Chronic findings including arteriosclerotic disease, chronic bony findings, and old granulomatous disease. 3. Remaining CT abdomen/pelvis without contrast exam is negative.
--- NOTE | 2023-01-05 16:30 | XRAY ---
Indication: Cough. Comparison: July 31, 2022 Portable chest demonstrates normal heart and lungs. Bony thorax intact again with osteopenia and mild degenerative changes. No new/acute findings.
[2023-01-05] MEDS ORDERED: Macrobid 100MG Capsule PO ONE (17:23)
[2023-01-05] MEDS ORDERED: Macrobid 100MG Capsule ONE (17:24)
[2023-01-05 17:31] VITALS: PULSE 70; RESP 17
== END 2023-01-05 17:31 | disposition home or self-care (01) ==
LOC: ED 14:41
DX: N39.0 Urinary tract infection, site not specified (principal); R10.9 Unspecified abdominal pain; R11.0 Nausea; R51.9 Headache, unspecified; R05.9 Cough, unspecified; R30.0 Dysuria; E78.5 Hyperlipidemia, unspecified; I10 Essential (primary) hypertension; Z79.899 Other long term (current) drug therapy; Z72.0 Tobacco use; Z20.828 Contact with and (suspected) exposure to other viral communicable diseases
CPT/HCPCS: 0241U; 36000; 36415; 71045; 74176; 80053; 81001; 83690; 84484; 85025; 87086; 93041; 94760; 96360; 96374; 99284; J2405; A9270-GY

== ENCOUNTER 2023-03-24 11:51 | Day surgery (SDC) | payer MEDICARE ==
[2023-03-24] MEDS ORDERED: BUPIVACAINE 0.5% VIAL IJ ONE (11:52)
[2023-03-24] MEDS ORDERED: Depo-Medrol 40 MG/ML IM ONE (11:52)
[2023-03-24] MEDS ORDERED: DIPRIVAN 200 MG/20 ML IV ONE (13:35)
[2023-03-24] MEDS ORDERED: Lactated Ringers 1,000 ML IV ONE (14:35)
--- NOTE | 2023-03-24 15:06 | XRAY ---
6 seconds of fluoroscopy was used in surgery for a right intra-articular hip injection.
--- NOTE | 2023-03-24 15:07 | XRAY ---
Indication: Right hip injection. Intraoperative fluoroscopy provided for 6 seconds. Single digital spot image submitted for interpretation demonstrates needle tip projecting lateral to right femur neck. Small amount of contrast injected for needle tip placement. Correlate with intraoperative findings/report.
== END 2023-03-24 14:03 | disposition home or self-care (01) ==
LOC: SDC-PAIN 11:51
PROVIDERS: ATTEND Psychiatry & Neurology Pain Medicine
DX: M16.11 Unilateral primary osteoarthritis, right hip (principal); Z79.899 Other long term (current) drug therapy
CPT/HCPCS: 20610; 73501; 77002; J1030; J2704; Q9966

== ENCOUNTER 2023-05-12 11:59 | Day surgery (SDC) | payer MEDICARE ==
[2023-05-12] MEDS ORDERED: Depo-Medrol 40 MG/ML IM ONE (12:00)
[2023-05-12] MEDS ORDERED: BUPIVACAINE 0.5% VIAL IJ ONE (12:00)
[2023-05-12] MEDS ORDERED: DIPRIVAN 200 MG/20 ML IV ONE (14:08)
[2023-05-12] MEDS ORDERED: Lactated Ringers 1,000 ML IV ONE (16:40)
--- NOTE | 2023-05-12 16:55 | XRAY ---
Indication: Right knee injection. Intraoperative fluoroscopy provided for 4 seconds. Single digital spot image submitted for interpretation demonstrates needle tip projecting over the right femur intercondylar notch. Small amount of contrast injected for needle tip placement. Correlate with intraoperative findings/report.
--- NOTE | 2023-05-12 16:57 | XRAY ---
4 seconds of fluoroscopy was used in surgery for a right intra-articular knee injection.
== END 2023-05-12 14:31 | disposition home or self-care (01) ==
LOC: SDC-PAIN 11:59
PROVIDERS: ATTEND Psychiatry & Neurology Pain Medicine
DX: M17.11 Unilateral primary osteoarthritis, right knee (principal)
CPT/HCPCS: 20610; 73560; 77002; J1030; J2704; Q9966

== ENCOUNTER 2023-06-30 16:39 | Observation (INO) | payer MEDICARE ==
--- NOTE | 2023-06-30 18:06 | ERPHSYRPT ---
- History of Present Illness Patient Subjective Stated Complaint: pt saw Dr. Murry yesterday and was diagnosed with a UTI and was give Nitrofurantoin and a couple hours later the pt began vomiting and having diarrhea Triage Nursing Assessment: Pt brought to the ER by her , tachycardic, rates abdominal pain as 09/16, pt came into the ER walking with a walker and had been incontinent of bowel, pulses normal, skin n/w/d, no difficulty breathing, N&V, last intake around noon today but it came back up Hx Tetanus, Diphtheria Vaccination/Date Given: No Hx Influenza Vaccination/Date Given: No Hx Pneumococcal Vaccination/Date Given: No <RENE PICKETT - Last Filed: 06/30/23 18:04> - History of Present Illness Timing/Duration: yesterday Activities at Onset: none Abdominal Pain Onset Location: generalized abdomen Pain Radiation: no radiation Severity of Pain-Max: moderate Severity of Pain-Current: mild Modifying Factors: Improves With: vomiting Associated Symptoms: denies symptoms Previous symptoms: no prior history <JOSE MANUEL GUTIÉRREZ - Last Filed: 06/30/23 19:53> - History of Present Illness Time Seen by Provider: 06/30/23 17:35 Physician History: 68-year-old female with history of hypertension, hyperlipidemia, GERD, arthritis presented in the ER with complaint of abdominal pain with intractable nausea vomiting and diarrhea since yesterday. Patient reports she went to her primary care for routine checkup before hip replacement and was found to have UTI, started on Macrobid. She has taken only 1 tablet and started to feel nauseated followed by abdominal pain, vomiting all night long and today and also having loose stool. Denies any hematemesis or hematochezia. No fever or chills reported but feels weak fatigued tired and dehydrated. She is not able to hold much down. Denies any known sick contact. No fever or chills reported. (RENE PICKETT) Allergies/Adverse Reactions: Penicillins Allergy (Verified 06/30/23 17:35) Sulfa (Sulfonamide Antibiotics) Allergy (Verified 06/30/23 17:35) Home Medications: Aspirin [Aspirin EC] 81 mg PO DAILY 02/07/16 [History] Pravastatin Sodium [Pravachol] 40 mg PO HS 02/07/16 [History] Pregabalin [Lyrica 100Mg] 200 mg PO BID 02/07/16 [History] Lisinopril 10 mg [Zestril 10 MG] 20 mg PO DAILY 08/11/16 [History] Meloxicam [Mobic] 7.5 mg PO DAILY 05/31/17 [History] Omeprazole 20 MG [Prilosec 20 mg] 20 mg PO DAILY 05/31/17 [History] Amlodipine Besylate 2.5 mg PO DAILY 02/06/22 [History] Metoprolol Succinate 50 mg [Toprol Xl 50 MG] 50 mg PO BID 02/06/22 [History] Travel Risk - International Travel Have you traveled outside of the country in past 3 weeks: No - Coronavirus Screening Are you exhibiting any of the following symptoms?: No Close contact with a COVID-19 positive Pt in past 14-21 Days: No - Vaccine Status Have you recieved a Covid-19 vaccination: No Forensic Scientist: [employer] <RENE PICKETT - Last Filed: 06/30/23 18:04> - Review of Systems Constitutional: Fatigue, Weakness Eyes: No Symptoms Ears, Nose, & Throat: No Symptoms Respiratory: No Symptoms Cardiac: No Symptoms Abdominal/Gastrointestinal: Abdominal Pain, Nausea, Vomiting, Diarrhea Genitourinary Symptoms: No Symptoms Musculoskeletal: Arthralgias Skin: No Symptoms Neurological: No Symptoms Psychological: No Symptoms Endocrine: No Symptoms Hematologic/Lymphatic: No Symptoms Immunological/Allergic: No Symptoms <RENE PICKETT - Last Filed: 06/30/23 18:04> - Past Medical History Pertinent Past Medical History: Yes Neurological History: Other Cardiac History: Coronary Artery Disease, High Cholesterol, Hypertension, Myocardial Infarction ([place]) Respiratory History: Asthma Endocrine Medical History: No Pertinent History Musculoskeletal History: Fibromyalgia, Osteoarthritis, Rheumatoid Arthritis Other Medical History: SX HX: LEFT THR 2018, LEFT ARTHROSCOPIC MENISCAL SURGERY 2017,. HYSTERECTOMY 20+ YEARS AGO - Past Surgical History Past Surgical History: Yes Musculoskeletal: Orthopedic Surgery Female Surgical History: Hysterectomy - Social History Smoking Status: Current every day smoker How long have you smoked: 50yrs Exposure to second hand smoke: Yes Drug Use: none Patient Lives Alone: No <RENE PICKETT - Last Filed: 06/30/23 18:04> - Physical Exam General Appearance: no apparent distress, alert Eye Exam: PERRL/EOMI Ears, Nose, Throat Exam: normal ENT inspection Neck Exam: normal inspection, full range of motion Respiratory Exam: normal breath sounds, lungs clear Cardiovascular Exam: normal heart sounds, tachycardia Gastrointestinal/Abdomen Exam: soft, normal bowel sounds, tenderness (Diffuse tenderness with no guarding or rebound) Extremity Exam: normal inspection, normal range of motion Neurologic Exam: alert, oriented x 3, cooperative Skin Exam: normal color SpO2 Interpretation: normal SpO2: 94 O2 Delivery: Room Air <RENE PICKETT - Last Filed: 06/30/23 18:04> - Nursing Vital Signs Nursing Vital Signs: Initial Vital Signs Temperature 99.2 F 06/30/23 17:26 Pulse Rate 110 H 06/30/23 17:26 Blood Pressure 139/88 06/30/23 17:26 O2 Sat by Pulse Oximetry 94 L 06/30/23 17:26 Pain Scale Pain Intensity 5 - Course Nursing assessment & vital signs reviewed: Yes <JOSE MANUEL GUTIÉRREZ - Last Filed: 06/30/23 19:53> Ordered Tests: Active Orders 24 hr Category Date Time Status IV Insertion STAT Care 06/30/23 18:02 Active NPO (ED) STAT Care 06/30/23 18:02 Active Oxygen-ED Only Nasal Cannula 2 lpm Care 06/30/23 18:14 Active ABDOMEN AND PELVIS W/0 CONTRAS [CT] Stat Exams 06/30/23 18:03 Taken CBC W DIFF Stat Lab 06/30/23 18:28 Completed CMP Stat Lab 06/30/23 18:28 Completed LIPASE Stat Lab 06/30/23 18:28 Completed MAG [MAGNESIUM] Stat Lab 06/30/23 18:28 Completed UA W/RFX UR CULTURE Stat Lab 06/30/23 18:02 Ordered Transfer Order Routine Transfer 06/30/23 Ordered Medication Summary Generic Name Dose Route Start Last Admin Trade Name Freq PRN Reason Stop Dose Admin Magnesium Sulfate/Dextrose 100 mls @ 100 mls/hr 06/30/23 19:30 06/30/23 19:40 Magnesium 1 Gm / 100 Ml D5w IV 06/30/23 21:29 100 mls/hr Q1H ELLA Administration Sodium Chloride 1,000 mls @ 100 mls/hr 06/30/23 19:45 06/30/23 19:39 Sodium Chloride 0.9% 1000 Ml IV 07/30/23 19:44 100 mls/hr .Q10H ELLA Administration Discontinued Medications Generic Name Dose Route Start Last Admin Trade Name Cara PRN Reason Stop Dose Admin Sodium Chloride 1,000 mls @ 999 mls/hr 06/30/23 18:02 06/30/23 19:11 Sodium Chloride 0.9% 1000 Ml IV 06/30/23 19:02 Infused .Q1H1M STA Infusion Sodium Chloride Confirm 06/30/23 18:08 Sodium Chloride 0.9% 1000 Ml Administered 06/30/23 18:09 Dose 1,000 mls @ ud .ROUTE .STK-MED ONE Morphine Sulfate 2 mg 06/30/23 18:02 06/30/23 18:11 Morphine Sulfate 2 Mg/Ml Inj IV 06/30/23 18:03 2 mg STAT ONE Administration Morphine Sulfate Confirm 06/30/23 18:08 Morphine Sulfate 2 Mg/Ml Inj Administered 06/30/23 18:09 Dose 2 mg .ROUTE .STK-MED ONE Ondansetron HCl 4 mg 06/30/23 18:02 06/30/23 18:10 Ondansetron Hcl 4 Mg/2 Ml Vial IV 06/30/23 18:03 4 mg STAT ONE Administration Ondansetron HCl Confirm 06/30/23 18:08 Ondansetron Hcl 4 Mg/2 Ml Vial Administered 06/30/23 18:09 Dose 4 mg .ROUTE .STK-MED ONE Lab/Rad Data: Laboratory Result Diagrams 06/30/23 18:28 06/30/23 18:28 Laboratory Results 06/30/23 06/30/23 06/30/23 Range/Units 18:30 18:28 18:28 WBC (4.0-10.5) x10^3/uL RBC (4.1-5.4) x10^6/uL Hgb (12.0-16.0) g/dL Hct (35-47) % MCV (78-100) fL MCH (26-32) pg MCHC (32-36) g/dL RDW (11.5-14.0) % Plt Count (150-450) x10^3/uL MPV (7.5-11.0) fL Gran % (36.0-66.0) % Immature Gran % (Auto) (0.00-0.4) % Nucleat RBC Rel Count (0.00-0.1) % Eos # (Auto) (0-0.5) x10^3/uL Immature Gran # (Auto) (0.00-0.03) x10^3u/L Absolute Lymphs (auto) (1.0-4.6) x10^3/uL Absolute Monos (auto) (0.0-1.3) x10^3/uL Absolute Nucleated RBC (0.00-0.01) x10^3u/L Lymphocytes % (24.0-44.0) % Monocytes % (0.0-12.0) % Eosinophils % (0.00-5.0) % Basophils % (0.0-0.4) % Absolute Granulocytes (1.4-6.9) x10^3/uL Basophils # (0-0.4) x10^3/uL Sodium 135 L (137-145) mmol/L Potassium 3.7 (3.5-5.1) mmol/L Chloride 103 (98-107) mmol/L Carbon Dioxide 24 (22-30) mmol/L Anion Gap 12.3 (5-15) MEQ/L BUN 30 H (7-17) mg/dL Creatinine 1.64 H (0.52-1.04) mg/dL Estimated GFR 34.1 ML/MIN Glucose 111 H (74-106) mg/dL Calcium 8.0 L (8.4-10.2) mg/dL Magnesium 1.0 L* (1.6-2.3) mg/dL Total Bilirubin 0.50 (0.2-1.3) mg/dL AST 41 H (14-36) U/L ALT 21 (0-35) U/L Alkaline Phosphatase 87 (38-126) U/L Serum Total Protein 6.7 (6.3-8.2) g/dL Albumin 3.7 (3.5-5.0) g/dL Lipase 50 (23-300) U/L Influenza Type A Ag NEGATIVE (NEGATIVE) Influenza Type B Ag NEGATIVE (NEGATIVE) RSV (PCR) NEGATIVE (NEGATIVE) SARS-CoV-2 (PCR) NEGATIVE (NEGATIVE) 06/30/23 Range/Units 18:28 WBC 11.4 H (4.0-10.5) x10^3/uL RBC 3.59 L (4.1-5.4) x10^6/uL Hgb 11.2 L (12.0-16.0) g/dL Hct 33.3 L (35-47) % MCV 92.8 (78-100) fL MCH 31.2 (26-32) pg MCHC 33.6 (32-36) g/dL RDW 13.3 (11.5-14.0) % Plt Count 195 (150-450) x10^3/uL MPV 10.4 (7.5-11.0) fL Gran % 94.4 H (36.0-66.0) % Immature Gran % (Auto) 0.4 (0.00-0.4) % Nucleat RBC Rel Count 0.0 (0.00-0.1) % Eos # (Auto) 0 (0-0.5) x10^3/uL Immature Gran # (Auto) 0.04 H (0.00-0.03) x10^3u/L Absolute Lymphs (auto) 0.29 L (1.0-4.6) x10^3/uL Absolute Monos (auto) 0.30 (0.0-1.3) x10^3/uL Absolute Nucleated RBC 0.00 (0.00-0.01) x10^3u/L Lymphocytes % 2.5 L (24.0-44.0) % Monocytes % 2.6 (0.0-12.0) % Eosinophils % 0.0 (0.00-5.0) % Basophils % 0.1 (0.0-0.4) % Absolute Granulocytes 10.75 H (1.4-6.9) x10^3/uL Basophils # 0.01 (0-0.4) x10^3/uL Sodium (137-145) mmol/L Potassium (3.5-5.1) mmol/L Chloride (98-107) mmol/L Carbon Dioxide (22-30) mmol/L Anion Gap (5-15) MEQ/L BUN (7-17) mg/dL Creatinine (0.52-1.04) mg/dL Estimated GFR ML/MIN Glucose (74-106) mg/dL Calcium (8.4-10.2) mg/dL Magnesium (1.6-2.3) mg/dL Total Bilirubin (0.2-1.3) mg/dL AST (14-36) U/L ALT (0-35) U/L Alkaline Phosphatase (38-126) U/L Serum Total Protein (6.3-8.2) g/dL Albumin (3.5-5.0) g/dL Lipase (23-300) U/L Influenza Type A Ag (NEGATIVE) Influenza Type B Ag (NEGATIVE) RSV (PCR) (NEGATIVE) SARS-CoV-2 (PCR) (NEGATIVE) <RENE PICKETT - Last Filed: 06/30/23 18:04> - Progress Progress: improved Discussed with Dr.: Other (Concha) Will see patient in: hospital (observation) Counseled pt/family regarding: lab results, diagnosis, need for follow-up, rad results <JOSE MANUEL GUTIÉRREZ - Last Filed: 06/30/23 19:53> - Progress Progress Note: 06/30/23 18:56 She is given fluids and symptomatic treatment. Workup is pending, care is transferred to Dr. Gutiérrez at the end of my shift for further evaluation after workup and final disposition. (RENE PICKETT) Patient endorsed to Dr. Gutiérrez at approximately [address] Gutiérrez to follow-up on pending laboratory studies and imaging studies. Workup reveals dehydration likely secondary to nausea vomiting diarrhea. Patient now has acute renal injury. IV fluids infused. Patient has known urinary tract infection this UTI is being treated by Macrobid. Patient believes the Macrobid triggered the nausea vomiting and diarrhea but is unsure. Lab workup reveals a magnesium of 1.0. Patient now receiving magnesium replacement. CT abdomen pelvis shows a mild enteritis and a new small hiatal hernia otherwise negative. Plan of care discussed with patient. She agrees to admission to [facility] for further evaluation and treatment. Case discussed with hospitalist Dr. Kern Who accepts admission to observation at 7:48 PM Portions of this note were created with voice recognition technology. There may be grammatical, spelling, punctuation or sound alike errors Complexity problem addressed is moderate acute complicated No critical care time Complex of data reviewed and analyzed is extensive. Test ordered test reviewed. Results analyzed and correlated clinically with history and physical examination. Management discussed with hospitalist who accepts admission to observation. Risk of complication and or risk of morbidity/mortality of patient management is high. Patient requires hospitalization for further evaluation and treatment. Vital stable. Time spent to admit patient is approximately 20 minutes. Plan of care established for shared decision making. No social determinants of health present impede follow-up. Portions of this note were created with voice recognition technology. There may be grammatical, spelling, punctuation or sound alike errors 06/30/23 19:49 (JOSE MANUEL GUTIÉRREZ) <RENE PICKETT - Last Filed: 06/30/23 18:04> - Departure Departure Disposition: Observation Critical Care Time: No <JOSE MANUEL GUTIÉRREZ - Last Filed: 06/30/23 19:53> - Departure Clinical Impression: Dehydration, Hypomagnesemia, Nausea vomiting and diarrhea, Acute renal injury, Abdominal pain, UTI (urinary tract infection), Small hiatal hernia, Enteritis Condition: Stable Referrals: LUISA MURRY MD [Primary Care Provider] - Follow up/PCP as directed
[2023-06-30] MEDS ORDERED: MORPHINE SULFATE 2 MG INJ ONE (18:08)
[2023-06-30] MEDS ORDERED: Sodium Chloride 0.9% 1000 ML 1,000 ML ONE (18:08)
[2023-06-30] MEDS ORDERED: Zofran 4 MG/2 ML VIAL ONE (18:08)
[2023-06-30] MEDS: Zofran 4 MG/2 ML VIAL IV ONE (18:10)
[2023-06-30] MEDS: Sodium Chloride 0.9% 1000 ML 1,000 ML IV STA (18:10)
[2023-06-30] MEDS: MORPHINE SULFATE 2 MG INJ IV ONE (18:11)
[2023-06-30 18:33] LABS: Absolute Neutrophil Ct (ANC) 10.75 x10^3/uL (1.4-6.9); BASOPHIL % 0.1 % (0.0-0.4); Basophil (Absolute #) 0.01 x10^3/uL (0-0.4); Eosinophil (Absolute #) 0 x10^3/uL (0-0.5); Hematocrit 33.3 % (35-47); Hemoglobin 11.2 g/dL (12.0-16.0); IMMATURE GRAN # 0.04 x10^3u/L (0.00-0.03); IMMATURE GRAN % 0.4 % (0.00-0.4); Lymphocyte (Absolute #) 0.29 x10^3/uL (1.0-4.6); Lymphocytes % 2.5 % (24.0-44.0); Mean Cell Volume 92.8 fL (78-100); Mean Corpuscular Hemoglobin 31.2 pg (26-32); Mean Corpuscular Hgb Concent. 33.6 g/dL (32-36); Mean Platelet Volume 10.4 fL (7.5-11.0); Monocytes % 2.6 % (0.0-12.0); Neutrophil % 94.4 % (36.0-66.0); Platelet Count 195 x10^3/uL (150-450); Red Blood Count 3.59 x10^6/uL (4.1-5.4); Red Cell Distribution Width 13.3 % (11.5-14.0); White Blood Count 11.4 x10^3/uL (4.0-10.5)
[2023-06-30 19:02] LABS: ALBUMIN 3.7 g/dL (3.5-5.0); ANION GAP 12.3 MEQ/L (5-15); BILIRUBIN,TOTAL 0.5 mg/dL (0.2-1.3); Creatinine 1 1.64 mg/dL (0.52-1.04); EST GLOMERULAR FILTRATION RATE 34.1 ML/MIN; Potassium 3.7 mmol/L (3.5-5.1); Total Protein 6.7 g/dL (6.3-8.2)
[2023-06-30 19:09] LABS: INFLUENZA A NEGATIVE (NEGATIVE); INFLUENZA B NEGATIVE (NEGATIVE); RESPIRATORY SYNCTIAL VIRUS NEGATIVE (NEGATIVE); SARS-CoV-2 Xpert Express NEGATIVE (NEGATIVE)
[2023-06-30] MEDS: Sodium Chloride 0.9% 1000 ML 1,000 ML IV SCH (19:39)
[2023-06-30] MEDS: Magnesium 1 Gm / 100 Ml D5W*** 100 ML IV SCH (19:40)
--- NOTE | 2023-06-30 20:29 | XRAY ---
Indication: Abdomen pain. Gastroenteritis. Multiple contiguous axial images obtained through abdomen and pelvis without contrast. Comparison: January 05, 2023 Lung bases now demonstrates mild bibasilar subsegmental atelectasis/scarring. No infiltrate or effusion. Heart not enlarged. New small hiatal hernia. Again left hip prosthesis produces beam artifact. Noncontrasted stomach and bowel loops appear nonobstructed. New mild fluid distended jejunal bowel loops with bowel wall thickening favoring enteritis. Normal appendix. Stable tiny hepatic/splenic calcific granulomas and hysterectomy. No free fluid/air. Remaining liver, gallbladder, pancreas, spleen, adrenal glands, kidneys, ureters, and bladder are unremarkable for noncontrast exam. Stable mild scattered aortoiliac calcifications without AAA. Osseous structures intact again with osteopenia, minimal/mild degenerative changes throughout spine, and markedly advanced right hip degenerative changes. Impression: 1. New CT findings favor enteritis. Also new small hiatal hernia. 2. Again chronic findings including arteriosclerotic disease, chronic bony findings, and old granulomatous disease.
[2023-06-30] MEDS ORDERED: Zofran 4 MG/2 ML VIAL IV PRN (20:47)
[2023-06-30] MEDS ORDERED: TYLENOL 325 MG PO PRN (20:47)
--- NOTE | 2023-06-30 21:00 | PCM.HP ---
History of Present Illness - Chief Complaint Chief Complaint: Acute renal injury, dehydration hypomagnesemia, UTI History of Present Illness: is a 68 year old female with tobacco use, HTN, CAD, HLP, fibromyalgia, and OA here with c/o abdominal pain, nausea and vomiting and diarrhea after starting macrobid 1 day ago for a UTI. She came in with lower abdominal pain, and found to be dehydrated and with low Mg. She denies any dysuria, flank pain, hematuria. Since here, no more nausea or diarrhea. She denies any fever, chills, SOB, cough, sputum, chest pain, headache, syncope I saw her in her room via telemedicine. She is comfortable, non-septic looking. - Review of Systems Constitutional: No Symptoms Eyes: No Symptoms Ears, Nose, & Throat: No Symptoms Respiratory: No Symptoms Cardiac: No Symptoms Abdominal/Gastrointestinal: Abdominal Pain, Nausea, Vomiting, Diarrhea Genitourinary Symptoms: No Symptoms Musculoskeletal: No Symptoms Skin: No Symptoms Neurological: No Symptoms Psychological: No Symptoms Endocrine: No Symptoms Hematologic/Lymphatic: No Symptoms Immunological/Allergic: No Symptoms Medications & Allergies Home Medications: Home Medication List Aspirin [Aspirin EC] 81 mg PO DAILY 02/07/16 [History Confirmed 06/30/23] Pravastatin Sodium [Pravachol] 40 mg PO HS 02/07/16 [History Confirmed 06/30/23] Pregabalin [Lyrica 100Mg] 200 mg PO BID 02/07/16 [History Confirmed 06/30/23] Lisinopril 10 mg [Zestril 10 MG] 20 mg PO DAILY 08/11/16 [History Confirmed 06/30/23] Meloxicam [Mobic] 7.5 mg PO DAILY 05/31/17 [History Confirmed 06/30/23] Omeprazole 20 MG [Prilosec 20 mg] 20 mg PO DAILY 05/31/17 [History Confirmed 06/30/23] Amlodipine Besylate 2.5 mg PO DAILY 02/06/22 [History Confirmed 06/30/23] Metoprolol Succinate 50 mg [Toprol Xl 50 MG] 50 mg PO BID 02/06/22 [History Confirmed 06/30/23] Allergies/Adverse Reactions: Allergies Allergy/AdvReac Type Severity Reaction Status Date / Time Penicillins Allergy Verified 06/30/23 17:35 Sulfa (Sulfonamide Allergy Verified 06/30/23 17:35 Antibiotics) - Past Medical History Past Medical History: Yes Neurological History: Other Cardiac History: Coronary Artery Disease, High Cholesterol, Hypertension, Myocardial Infarction ([place]) Respiratory History: Asthma Endocrine Medical History: No Pertinent History Musculoskelatal History: Fibromyalgia, Osteoarthritis, Rheumatoid Arthritis Comment: SX HX: LEFT THR 2018, LEFT ARTHROSCOPIC MENISCAL SURGERY 2017,. HYSTERECTOMY 20+ YEARS AGO - Past Surgical History Past Surgical History: Yes Musculskeletal Surgical Hx: Orthopedic Surgery Female Surgical History: Hysterectomy Significant Family History: no pertinent family hx - Social History Smoking Status: Current every day smoker How long have you smoked: 50yrs Exposure to second hand smoke: Yes Alcohol: None Drug Use: none - Physical Exam Vital Signs: Vital Signs - 24 hr Temp Pulse Resp BP BP Pulse Ox 06/30/23 19:12 95 06/30/23 18:30 132/81 06/30/23 18:06 94 L 06/30/23 18:00 100 H 18 129/68 91 L 06/30/23 17:26 99.2 F 110 H 139/88 94 L General Appearance: no apparent distress Neurologic Exam: alert, oriented x 3, cooperative Eye Exam: PERRL/EOMI, eyes nml inspection Ears, Nose, Throat Exam: normal ENT inspection, moist mucous membranes Neck Exam: normal inspection, full range of motion Respiratory Exam: normal breath sounds, lungs clear Cardiovascular Exam: regular rate/rhythm, normal heart sounds Gastrointestinal/Abdomen Exam: soft, normal bowel sounds Pelvic Exam: deferred Rectal Exam: deferred Back Exam: normal inspection Extremity Exam: normal inspection Skin Exam: normal color, warm, dry Results - Labs Lab/Micro Results: Lab Results-Last 24 Hours 06/30/23 06/30/23 06/30/23 Range/Units 18:28 18:28 18:28 WBC 11.4 H (4.0-10.5) x10^3/uL RBC 3.59 L (4.1-5.4) x10^6/uL Hgb 11.2 L (12.0-16.0) g/dL Hct 33.3 L (35-47) % MCV 92.8 (78-100) fL MCH 31.2 (26-32) pg MCHC 33.6 (32-36) g/dL RDW 13.3 (11.5-14.0) % Plt Count 195 (150-450) x10^3/uL MPV 10.4 (7.5-11.0) fL Gran % 94.4 H (36.0-66.0) % Immature Gran % (Auto) 0.4 (0.00-0.4) % Nucleat RBC Rel Count 0.0 (0.00-0.1) % Eos # (Auto) 0 (0-0.5) x10^3/uL Immature Gran # (Auto) 0.04 H (0.00-0.03) x10^3u/L Absolute Lymphs (auto) 0.29 L (1.0-4.6) x10^3/uL Absolute Monos (auto) 0.30 (0.0-1.3) x10^3/uL Absolute Nucleated RBC 0.00 (0.00-0.01) x10^3u/L Lymphocytes % 2.5 L (24.0-44.0) % Monocytes % 2.6 (0.0-12.0) % Eosinophils % 0.0 (0.00-5.0) % Basophils % 0.1 (0.0-0.4) % Absolute Granulocytes 10.75 H (1.4-6.9) x10^3/uL Basophils # 0.01 (0-0.4) x10^3/uL Sodium 135 L (137-145) mmol/L Potassium 3.7 (3.5-5.1) mmol/L Chloride 103 (98-107) mmol/L Carbon Dioxide 24 (22-30) mmol/L Anion Gap 12.3 (5-15) MEQ/L BUN 30 H (7-17) mg/dL Creatinine 1.64 H (0.52-1.04) mg/dL Estimated GFR 34.1 ML/MIN Glucose 111 H (74-106) mg/dL Calcium 8.0 L (8.4-10.2) mg/dL Magnesium 1.0 L* (1.6-2.3) mg/dL Total Bilirubin 0.50 (0.2-1.3) mg/dL AST 41 H (14-36) U/L ALT 21 (0-35) U/L Alkaline Phosphatase 87 (38-126) U/L Serum Total Protein 6.7 (6.3-8.2) g/dL Albumin 3.7 (3.5-5.0) g/dL Lipase 50 (23-300) U/L Influenza Type A Ag (NEGATIVE) Influenza Type B Ag (NEGATIVE) RSV (PCR) (NEGATIVE) SARS-CoV-2 (PCR) (NEGATIVE) 06/30/23 Range/Units 18:30 WBC (4.0-10.5) x10^3/uL RBC (4.1-5.4) x10^6/uL Hgb (12.0-16.0) g/dL Hct (35-47) % MCV (78-100) fL MCH (26-32) pg MCHC (32-36) g/dL RDW (11.5-14.0) % Plt Count (150-450) x10^3/uL MPV (7.5-11.0) fL Gran % (36.0-66.0) % Immature Gran % (Auto) (0.00-0.4) % Nucleat RBC Rel Count (0.00-0.1) % Eos # (Auto) (0-0.5) x10^3/uL Immature Gran # (Auto) (0.00-0.03) x10^3u/L Absolute Lymphs (auto) (1.0-4.6) x10^3/uL Absolute Monos (auto) (0.0-1.3) x10^3/uL Absolute Nucleated RBC (0.00-0.01) x10^3u/L Lymphocytes % (24.0-44.0) % Monocytes % (0.0-12.0) % Eosinophils % (0.00-5.0) % Basophils % (0.0-0.4) % Absolute Granulocytes (1.4-6.9) x10^3/uL Basophils # (0-0.4) x10^3/uL Sodium (137-145) mmol/L Potassium (3.5-5.1) mmol/L Chloride (98-107) mmol/L Carbon Dioxide (22-30) mmol/L Anion Gap (5-15) MEQ/L BUN (7-17) mg/dL Creatinine (0.52-1.04) mg/dL Estimated GFR ML/MIN Glucose (74-106) mg/dL Calcium (8.4-10.2) mg/dL Magnesium (1.6-2.3) mg/dL Total Bilirubin (0.2-1.3) mg/dL AST (14-36) U/L ALT (0-35) U/L Alkaline Phosphatase (38-126) U/L Serum Total Protein (6.3-8.2) g/dL Albumin (3.5-5.0) g/dL Lipase (23-300) U/L Influenza Type A Ag NEGATIVE (NEGATIVE) Influenza Type B Ag NEGATIVE (NEGATIVE) RSV (PCR) NEGATIVE (NEGATIVE) SARS-CoV-2 (PCR) NEGATIVE (NEGATIVE) - Radiology Impressions Radiology Exams & Impressions: Radiology Procedures Category Date Time Status ABDOMEN AND PELVIS W/0 CONTRAS [CT] Stat Exams 06/30/23 18:03 Completed Assessment/Plan (1) Nausea vomiting and diarrhea Current Visit: Yes Status: Acute Assessment & Plan: Likely a side effect of macrobid given the timing of symptoms after taking this med. She denies any dysuria or flank pain now. UA is pending. I will elect to monitor and wait on UA before continuing any ABX for now. Treat nausea with zofran prn. If diarrhea continues, we will test of Cdif and other stools studies. But if it resolves, which it is for now, will chalk it up to my initial suspicion of side effect of the macrobid Code(s): R11.2 - NAUSEA WITH VOMITING, UNSPECIFIED; R19.7 - DIARRHEA, UNSPECIFIED (2) Acute renal injury Current Visit: Yes Status: Acute Assessment & Plan: Likely pre-renal due to N/V/D. Start NS and monitor. Will hold Lisinopril and Meloxicam in setting of CHA Code(s): N17.9 - ACUTE KIDNEY FAILURE, UNSPECIFIED (3) Leukocytosis Current Visit: Yes Status: Acute Assessment & Plan: WBC 11s, mildly up. Likely a stress response or related to the recent UTI. Again, awaiting UA result. She is afebrile, non-septic on my exam. Monitor trend Code(s): D72.829 - ELEVATED WHITE BLOOD CELL COUNT, UNSPECIFIED (4) Dehydration Current Visit: Yes Status: Acute Assessment & Plan: 2/2 to the n/v/d. Supportive measures, IVF Code(s): E86.0 - DEHYDRATION (5) Hypomagnesemia Current Visit: Yes Status: Acute Assessment & Plan: ER replaced this. Low due to GI loss from her N/V/D. Monitor and replace as needed Code(s): E83.42 - HYPOMAGNESEMIA (6) Essential (primary) hypertension Current Visit: Yes Status: Acute Assessment & Plan: BP is not low, and not high. Holding Lisinopril due to CHA. Can resume amlodipine and BB Code(s): I10 - ESSENTIAL (PRIMARY) HYPERTENSION (7) Tobacco abuse Current Visit: Yes Status: Acute Assessment & Plan: Nicotine patch Code(s): Z72.0 - TOBACCO USE (8) Tobacco abuse counseling Current Visit: Yes Status: Acute Assessment & Plan: Counseled on smoking cessation Code(s): Z71.6 - TOBACCO ABUSE COUNSELING Telemedicine Encounter - Telemedicine Encounter Telemedicine Encounter: The entirety of this encounter was performed via Telemedicine" The pt gave verbal consent to have this telemedicine visit
[2023-06-30] MEDS: Nicoderm CQ 21 MG TOP SCH (21:42)
[2023-06-30] MEDS: NON-FORMULARY ITEM (Pravastatin Sodium [Pravachol] 40 MG Tablet) PO SCH (22:27)
[2023-06-30] MEDS: Toprol Xl 50 MG PO SCH (22:32)
[2023-06-30] MEDS: LYRICA 100MG PO SCH (22:33)
[2023-06-30] MEDS: HEPARIN 5000 UNITS/0.5 ML (HIGH RISK MED) SQ SCH (22:33)
[2023-07-01 05:24] LABS: Hemoglobin 9.7 g/dL (12.0-16.0); Mean Cell Volume 93.8 fL (78-100); Mean Corpuscular Hemoglobin 30.3 pg (26-32); Mean Corpuscular Hgb Concent. 32.3 g/dL (32-36); Mean Platelet Volume 11.9 fL (7.5-11.0); Platelet Count 173 x10^3/uL (150-450); Red Cell Distribution Width 13.6 % (11.5-14.0); White Blood Count 6.7 x10^3/uL (4.0-10.5)
[2023-07-01 05:45] LABS: ALBUMIN 3.1 g/dL (3.5-5.0); BILIRUBIN,TOTAL 0.4 mg/dL (0.2-1.3); Calcium 7.5 mg/dL (8.4-10.2); Creatinine 1 1.12 mg/dL (0.52-1.04); EST GLOMERULAR FILTRATION RATE 53.9 ML/MIN; Potassium 3.5 mmol/L (3.5-5.1); Total Protein 5.9 g/dL (6.3-8.2)
[2023-07-01] MEDS ORDERED: TYLENOL 325 MG PO PRN (07:44)
[2023-07-01 07:56] LABS: Appearance Cloudy (Clear); Bacteria Moderate /HPF (None Seen); Bilirubin Negative (Negative); Blood Small (Negative); Epithelial Cells Few /HPF (None Seen); Glucose, Urine Negative (Negative); Ketones Negative (Negative); Leukocyte Esterase Large (Negative); Nitrite Negative (Negative); Ph 5.5 (4.6-8.0); Protein,Urine Dip Trace (Negative); RBC 0-2 /HPF (0-5); WBC >100 /HPF (0-5)
[2023-07-01 07:57] LABS: ADD URINE CULTURE? YES (NO)
[2023-07-01] MEDS ORDERED: BENADRYL 25 MG CAPSULE PO PRN (08:43)
[2023-07-01] MEDS: Protonix 40MG Tablet PO SCH (09:08)
[2023-07-01] MEDS: NORVASC 5 MG PO SCH (09:08)
[2023-07-01] MEDS: ECOTRIN 81 MG PO SCH (09:08)
[2023-07-01] MEDS: ROCEPHIN 1 GM / 100 ML NaCl 1 GM/100 ML IVPB IV SCH (09:26)
[2023-07-01] MEDS ORDERED: NON-FORMULARY ITEM (Omeprazole 20 Mg [Prilosec 20 Mg] 20 MG Capsule.Dr) PO SCH (10:00)
[2023-07-01] MEDS ORDERED: NON-FORMULARY ITEM (Amlodipine Besylate [Amlodipine Besylate] 2.5 MG Tablet) PO SCH (10:00)
--- NOTE | 2023-07-01 14:35 | PCM.NOTE ---
Date and Time: 07/01/23 3403 Subjective Assessment: is a 68 year old female with tobacco use, sleep apnea with non- compliance of cpap, HTN, CAD, HLP, fibromyalgia, and OA. She was seen in ER on 06/30/23 with c/o abdominal pain, N/V/D after starting macrobid 1 day ago for a UTI. She came in with lower abdominal pain, and found to be dehydrated and with low Mg+. She denied any dysuria, flank pain, hematuria on admission. Since admission last night she has not had any N/V/D. Abd. pain has resolved. She may need home O2 as she refuses to wear her CPAP at night and O2 drops at night. Will order continuous pulse ox. She is currently on 2lNC at 94%. Low Mg+ resolved. CHA improving. Leukocytosis resolved. Procal 4.750. Continue ceftriaxone and add zithromax. CT shows BLLL atelectasis. IVF stopped. She does have crackles in lung bases. She denies Cp, Abd. pain, N/V/D. - Review of Systems Constitutional: No Fever, No Chills Eyes: No Symptoms Ears, Nose, & Throat: No Symptoms Respiratory: Short Of Breath, No Cough Cardiac: No Chest Pain, No Edema, No Syncope Abdominal/Gastrointestinal: No Abdominal Pain, No Nausea, No Vomiting, No Diarrhea Genitourinary Symptoms: No Dysuria Musculoskeletal: No Back Pain, No Neck Pain Skin: No Rash Neurological: No Dizziness, No Focal Weakness, No Sensory Changes Psychological: No Symptoms Endocrine: No Symptoms Hematologic/Lymphatic: No Symptoms Immunological/Allergic: No Symptoms Objective Exam General Appearance: no apparent distress, alert Neurologic Exam: alert, oriented x 3, cooperative, normal mood/affect, nml cerebellar function, sensation nml, No motor deficits Skin Exam: normal color, warm, dry Eye Exam: PERRL, EOMI, eyes nml inspection Ears, Nose, Throat Exam: normal ENT inspection, pharynx normal, moist mucous membranes Neck Exam: normal inspection, non-tender, supple, full range of motion Respiratory Exam: normal breath sounds, lungs clear, crackles/rales (BLLL), No respiratory distress Cardiovascular Exam: regular rate/rhythm, normal heart sounds Gastrointestinal/Abdomen Exam: soft, No tenderness, No mass Extremity Exam: normal inspection, normal range of motion Back Exam: normal inspection, normal range of motion, No CVA tenderness, No vertebral tenderness Pelvic Exam: deferred Rectal Exam: deferred OBJECTIVE DATA Vital Signs: Vital Signs - 24 hr Temp Pulse Resp BP BP Pulse Ox 07/01/23 11:00 98.3 F 77 18 107/53 96 07/01/23 09:51 80 92 L 07/01/23 09:50 83 85 L 07/01/23 09:31 85 18 94 L 07/01/23 08:00 98.3 F 80 16 119/58 97 07/01/23 07:17 94 L 07/01/23 04:07 98.4 F 77 20 110/57 96 07/01/23 02:19 95 07/01/23 00:00 99.2 F 82 23 109/57 94 L 06/30/23 23:08 95 06/30/23 22:40 95 06/30/23 21:50 83 06/30/23 21:10 98.5 F 94 H 18 122/56 95 06/30/23 19:12 95 06/30/23 18:30 132/81 06/30/23 18:06 94 L 06/30/23 18:00 100 H 18 129/68 91 L 06/30/23 17:26 99.2 F 110 H 139/88 94 L Pain Assessment - Last Documented Pain Intensity 0 Intake and Output: Intake & Output 06/29/23 06/30/23 07/01/23 07/02/23 11:59 11:59 11:59 11:59 Intake Total 1439 120 Output Total 350 Balance 1089 120 Weight 57.6 kg Lab Results: Lab Results-Last 24 Hours 06/30/23 06/30/23 06/30/23 Range/Units 18:02 18:28 18:28 WBC 11.4 H (4.0-10.5) x10^3/uL RBC 3.59 L (4.1-5.4) x10^6/uL Hgb 11.2 L (12.0-16.0) g/dL Hct 33.3 L (35-47) % MCV 92.8 (78-100) fL MCH 31.2 (26-32) pg MCHC 33.6 (32-36) g/dL RDW 13.3 (11.5-14.0) % Plt Count 195 (150-450) x10^3/uL MPV 10.4 (7.5-11.0) fL Gran % 94.4 H (36.0-66.0) % Immature Gran % (Auto) 0.4 (0.00-0.4) % Nucleat RBC Rel Count 0.0 (0.00-0.1) % Eos # (Auto) 0 (0-0.5) x10^3/uL Immature Gran # (Auto) 0.04 H (0.00-0.03) x10^3u/L Absolute Lymphs (auto) 0.29 L (1.0-4.6) x10^3/uL Absolute Monos (auto) 0.30 (0.0-1.3) x10^3/uL Absolute Nucleated RBC 0.00 (0.00-0.01) x10^3u/L Lymphocytes % 2.5 L (24.0-44.0) % Monocytes % 2.6 (0.0-12.0) % Eosinophils % 0.0 (0.00-5.0) % Basophils % 0.1 (0.0-0.4) % Absolute Granulocytes 10.75 H (1.4-6.9) x10^3/uL Basophils # 0.01 (0-0.4) x10^3/uL Sodium 135 L (137-145) mmol/L Potassium 3.7 (3.5-5.1) mmol/L Chloride 103 (98-107) mmol/L Carbon Dioxide 24 (22-30) mmol/L Anion Gap 12.3 (5-15) MEQ/L BUN 30 H (7-17) mg/dL Creatinine 1.64 H (0.52-1.04) mg/dL Estimated GFR 34.1 ML/MIN Glucose 111 H (74-106) mg/dL Calcium 8.0 L (8.4-10.2) mg/dL Magnesium (1.6-2.3) mg/dL Total Bilirubin 0.50 (0.2-1.3) mg/dL AST 41 H (14-36) U/L ALT 21 (0-35) U/L Alkaline Phosphatase 87 (38-126) U/L Serum Total Protein 6.7 (6.3-8.2) g/dL Albumin 3.7 (3.5-5.0) g/dL Lipase 50 (23-300) U/L Procalcitonin (0.030-0.080) ng/mL Urine Color Yellow (Yellow) Urine Appearance Cloudy A (Clear) Urine pH 5.5 (4.6-8.0) Ur Specific Guys 1.020 (1.005-1.030) Urine Protein Trace A (Negative) Urine Glucose (UA) Negative (Negative) mg/dL Urine Ketones Negative (Negative) Urine Blood Small A (Negative) Urine Nitrite Negative (Negative) Urine Bilirubin Negative (Negative) Urine Urobilinogen 1.0 A (0.2) mg/dL Ur Leukocyte Esterase Large A (Negative) U Hyaline Cast (Auto) 3-5 A (0-2) /LPF Urine Microscopic RBC 0-2 (0-5) /HPF Urine Microscopic WBC >100 A (0-5) /HPF Ur Epithelial Cells Few (None Seen) /HPF Urine Bacteria Moderate A (None Seen) /HPF Urine Culture Reflexed YES (NO) Influenza Type A Ag (NEGATIVE) Influenza Type B Ag (NEGATIVE) RSV (PCR) (NEGATIVE) SARS-CoV-2 (PCR) (NEGATIVE) 06/30/23 06/30/23 07/01/23 Range/Units 18:28 18:30 04:19 WBC 6.7 (4.0-10.5) x10^3/uL RBC 3.20 L (4.1-5.4) x10^6/uL Hgb 9.7 L (12.0-16.0) g/dL Hct 30.0 L (35-47) % MCV 93.8 (78-100) fL MCH 30.3 (26-32) pg MCHC 32.3 (32-36) g/dL RDW 13.6 (11.5-14.0) % Plt Count 173 (150-450) x10^3/uL MPV 11.9 H (7.5-11.0) fL Gran % (36.0-66.0) % Immature Gran % (Auto) (0.00-0.4) % Nucleat RBC Rel Count (0.00-0.1) % Eos # (Auto) (0-0.5) x10^3/uL Immature Gran # (Auto) (0.00-0.03) x10^3u/L Absolute Lymphs (auto) (1.0-4.6) x10^3/uL Absolute Monos (auto) (0.0-1.3) x10^3/uL Absolute Nucleated RBC (0.00-0.01) x10^3u/L Lymphocytes % (24.0-44.0) % Monocytes % (0.0-12.0) % Eosinophils % (0.00-5.0) % Basophils % (0.0-0.4) % Absolute Granulocytes (1.4-6.9) x10^3/uL Basophils # (0-0.4) x10^3/uL Sodium (137-145) mmol/L Potassium (3.5-5.1) mmol/L Chloride (98-107) mmol/L Carbon Dioxide (22-30) mmol/L Anion Gap (5-15) MEQ/L BUN (7-17) mg/dL Creatinine (0.52-1.04) mg/dL Estimated GFR ML/MIN Glucose (74-106) mg/dL Calcium (8.4-10.2) mg/dL Magnesium 1.0 L* (1.6-2.3) mg/dL Total Bilirubin (0.2-1.3) mg/dL AST (14-36) U/L ALT (0-35) U/L Alkaline Phosphatase (38-126) U/L Serum Total Protein (6.3-8.2) g/dL Albumin (3.5-5.0) g/dL Lipase (23-300) U/L Procalcitonin (0.030-0.080) ng/mL Urine Color (Yellow) Urine Appearance (Clear) Urine pH (4.6-8.0) Ur Specific Guys (1.005-1.030) Urine Protein (Negative) Urine Glucose (UA) (Negative) mg/dL Urine Ketones (Negative) Urine Blood (Negative) Urine Nitrite (Negative) Urine Bilirubin (Negative) Urine Urobilinogen (0.2) mg/dL Ur Leukocyte Esterase (Negative) U Hyaline Cast (Auto) (0-2) /LPF Urine Microscopic RBC (0-5) /HPF Urine Microscopic WBC (0-5) /HPF Ur Epithelial Cells (None Seen) /HPF Urine Bacteria (None Seen) /HPF Urine Culture Reflexed (NO) Influenza Type A Ag NEGATIVE (NEGATIVE) Influenza Type B Ag NEGATIVE (NEGATIVE) RSV (PCR) NEGATIVE (NEGATIVE) SARS-CoV-2 (PCR) NEGATIVE (NEGATIVE) 07/01/23 07/01/23 07/01/23 Range/Units 04:19 04:19 07:30 WBC (4.0-10.5) x10^3/uL RBC (4.1-5.4) x10^6/uL Hgb (12.0-16.0) g/dL Hct (35-47) % MCV (78-100) fL MCH (26-32) pg MCHC (32-36) g/dL RDW (11.5-14.0) % Plt Count (150-450) x10^3/uL MPV (7.5-11.0) fL Gran % (36.0-66.0) % Immature Gran % (Auto) (0.00-0.4) % Nucleat RBC Rel Count (0.00-0.1) % Eos # (Auto) (0-0.5) x10^3/uL Immature Gran # (Auto) (0.00-0.03) x10^3u/L Absolute Lymphs (auto) (1.0-4.6) x10^3/uL Absolute Monos (auto) (0.0-1.3) x10^3/uL Absolute Nucleated RBC (0.00-0.01) x10^3u/L Lymphocytes % (24.0-44.0) % Monocytes % (0.0-12.0) % Eosinophils % (0.00-5.0) % Basophils % (0.0-0.4) % Absolute Granulocytes (1.4-6.9) x10^3/uL Basophils # (0-0.4) x10^3/uL Sodium 135 L (137-145) mmol/L Potassium 3.5 (3.5-5.1) mmol/L Chloride 108 H (98-107) mmol/L Carbon Dioxide 23 (22-30) mmol/L Anion Gap 7.0 (5-15) MEQ/L BUN 27 H (7-17) mg/dL Creatinine 1.12 H (0.52-1.04) mg/dL Estimated GFR 53.9 ML/MIN Glucose 83 (74-106) mg/dL Calcium 7.5 L (8.4-10.2) mg/dL Magnesium 2.2 2.2 (1.6-2.3) mg/dL Total Bilirubin 0.40 (0.2-1.3) mg/dL AST 34 (14-36) U/L ALT 18 (0-35) U/L Alkaline Phosphatase 76 (38-126) U/L Serum Total Protein 5.9 L (6.3-8.2) g/dL Albumin 3.1 L (3.5-5.0) g/dL Lipase (23-300) U/L Procalcitonin (0.030-0.080) ng/mL Urine Color (Yellow) Urine Appearance (Clear) Urine pH (4.6-8.0) Ur Specific Guys (1.005-1.030) Urine Protein (Negative) Urine Glucose (UA) (Negative) mg/dL Urine Ketones (Negative) Urine Blood (Negative) Urine Nitrite (Negative) Urine Bilirubin (Negative) Urine Urobilinogen (0.2) mg/dL Ur Leukocyte Esterase (Negative) U Hyaline Cast (Auto) (0-2) /LPF Urine Microscopic RBC (0-5) /HPF Urine Microscopic WBC (0-5) /HPF Ur Epithelial Cells (None Seen) /HPF Urine Bacteria (None Seen) /HPF Urine Culture Reflexed (NO) Influenza Type A Ag (NEGATIVE) Influenza Type B Ag (NEGATIVE) RSV (PCR) (NEGATIVE) SARS-CoV-2 (PCR) (NEGATIVE) 07/01/23 Range/Units Unknown WBC (4.0-10.5) x10^3/uL RBC (4.1-5.4) x10^6/uL Hgb (12.0-16.0) g/dL Hct (35-47) % MCV (78-100) fL MCH (26-32) pg MCHC (32-36) g/dL RDW (11.5-14.0) % Plt Count (150-450) x10^3/uL MPV (7.5-11.0) fL Gran % (36.0-66.0) % Immature Gran % (Auto) (0.00-0.4) % Nucleat RBC Rel Count (0.00-0.1) % Eos # (Auto) (0-0.5) x10^3/uL Immature Gran # (Auto) (0.00-0.03) x10^3u/L Absolute Lymphs (auto) (1.0-4.6) x10^3/uL Absolute Monos (auto) (0.0-1.3) x10^3/uL Absolute Nucleated RBC (0.00-0.01) x10^3u/L Lymphocytes % (24.0-44.0) % Monocytes % (0.0-12.0) % Eosinophils % (0.00-5.0) % Basophils % (0.0-0.4) % Absolute Granulocytes (1.4-6.9) x10^3/uL Basophils # (0-0.4) x10^3/uL Sodium (137-145) mmol/L Potassium (3.5-5.1) mmol/L Chloride (98-107) mmol/L Carbon Dioxide (22-30) mmol/L Anion Gap (5-15) MEQ/L BUN (7-17) mg/dL Creatinine (0.52-1.04) mg/dL Estimated GFR ML/MIN Glucose (74-106) mg/dL Calcium (8.4-10.2) mg/dL Magnesium (1.6-2.3) mg/dL Total Bilirubin (0.2-1.3) mg/dL AST (14-36) U/L ALT (0-35) U/L Alkaline Phosphatase (38-126) U/L Serum Total Protein (6.3-8.2) g/dL Albumin (3.5-5.0) g/dL Lipase (23-300) U/L Procalcitonin 4.750 H* (0.030-0.080) ng/mL Urine Color (Yellow) Urine Appearance (Clear) Urine pH (4.6-8.0) Ur Specific Guys (1.005-1.030) Urine Protein (Negative) Urine Glucose (UA) (Negative) mg/dL Urine Ketones (Negative) Urine Blood (Negative) Urine Nitrite (Negative) Urine Bilirubin (Negative) Urine Urobilinogen (0.2) mg/dL Ur Leukocyte Esterase (Negative) U Hyaline Cast (Auto) (0-2) /LPF Urine Microscopic RBC (0-5) /HPF Urine Microscopic WBC (0-5) /HPF Ur Epithelial Cells (None Seen) /HPF Urine Bacteria (None Seen) /HPF Urine Culture Reflexed (NO) Influenza Type A Ag (NEGATIVE) Influenza Type B Ag (NEGATIVE) RSV (PCR) (NEGATIVE) SARS-CoV-2 (PCR) (NEGATIVE) Radiology Exams: Radiology Procedures Category Date Time Status ABDOMEN AND PELVIS W/0 CONTRAS [CT] Stat Exams 06/30/23 18:03 Completed Assessment/Plan (1) Urinary tract infection Current Visit: Yes Status: Acute Assessment & Plan: - UC pending - ceftriaxone Code(s): N39.0 - URINARY TRACT INFECTION, SITE NOT SPECIFIED (2) Atelectasis of both lungs Current Visit: Yes Status: Acute Assessment & Plan: - IVF stopped - as seen on CT - procal 4.750 - cont pulse ox for home o2 need - pt reports she is to wear cpap at [facility] but not compliant. Code(s): J98.11 - ATELECTASIS (3) Abdominal pain Current Visit: Yes Status: Chronic Assessment & Plan: - resolved - 2:2 enteritis Code(s): R10.9 - UNSPECIFIED ABDOMINAL PAIN (4) Acute renal injury Current Visit: Yes Status: Acute Assessment & Plan: - improving - Creat 1.12, baseline normal Code(s): N17.9 - ACUTE KIDNEY FAILURE, UNSPECIFIED (5) Enteritis Current Visit: Yes Status: Resolved Assessment & Plan: - as seen on CT - sxs resolved - CT abd./ pelvis with IV contrast 06/30/23 Impression: 1. New CT findings favor enteritis. Also new small hiatal hernia. 2. Again chronic findings including arteriosclerotic disease, chronic bony findings, and old granulomatous disease Code(s): K52.9 - NONINFECTIVE GASTROENTERITIS AND COLITIS, UNSPECIFIED (6) Hypomagnesemia Current Visit: Yes Status: Resolved Assessment & Plan: - resolved Code(s): E83.42 - HYPOMAGNESEMIA (7) Leukocytosis Current Visit: Yes Status: Resolved Assessment & Plan: - resolved Code(s): D72.829 - ELEVATED WHITE BLOOD CELL COUNT, UNSPECIFIED (8) Nausea vomiting and diarrhea Current Visit: Yes Status: Resolved Assessment & Plan: - resolved - prn meds Code(s): R11.2 - NAUSEA WITH VOMITING, UNSPECIFIED; R19.7 - DIARRHEA, UNSPECIFIED (9) Tobacco abuse Current Visit: Yes Status: Chronic Assessment & Plan: - advised cessation - refused nicotine patch. VTE: heparin PPI: protonix Next of Kin: Victor M Mark [phone] D/C plan: tomorrow Code status: Full Code(s): Z72.0 - TOBACCO USE
[2023-07-01] MEDS: Zithromax 500 MG/ 250 ML NaCl Premix 500 MG/250 ML IVPB IV SCH (15:48)
[2023-07-01] MEDS: Compazine 10 MG/2 ML IV PRN (16:40)
[2023-07-01] MEDS: ZOCOR 20MG PO SCH (22:50)
[2023-07-02 04:55] LABS: Hematocrit 29.2 % (35-47); Hemoglobin 9.6 g/dL (12.0-16.0); Mean Cell Volume 94.2 fL (78-100); Mean Corpuscular Hgb Concent. 32.9 g/dL (32-36); Mean Platelet Volume 11.1 fL (7.5-11.0); Platelet Count 174 x10^3/uL (150-450); Red Cell Distribution Width 13.3 % (11.5-14.0); White Blood Count 5.8 x10^3/uL (4.0-10.5)
[2023-07-02 05:25] LABS: ALBUMIN 3.1 g/dL (3.5-5.0); ANION GAP 10.3 MEQ/L (5-15); BILIRUBIN,TOTAL 0.3 mg/dL (0.2-1.3); Calcium 8.2 mg/dL (8.4-10.2); Creatinine 1 0.98 mg/dL (0.52-1.04); EST GLOMERULAR FILTRATION RATE 63.3 ML/MIN; Potassium 3.6 mmol/L (3.5-5.1); Total Protein 5.9 g/dL (6.3-8.2)
[2023-07-02 11:20] VITALS: BP 104/59; PULSE 67; RESP 23; TEMP 97.1; O2SAT 96
--- NOTE | 2023-07-02 11:33 | PCM.DS ---
Discharge Summary Date of Admission: 06/30/23 20:16 Date of Discharge: 07/02/23 Admitting Physician: VU FISHER DO Primary Care Provider: LOVELY,LUISA Allergies Allergies Penicillins Allergy (Verified 06/30/23 17:35) Sulfa (Sulfonamide Antibiotics) Allergy (Verified 06/30/23 17:35) Hospital Summary - Hospital Course Hospital Course: 07/01/23 is a 68 year old female with tobacco use, sleep apnea with non- compliance of cpap, HTN, CAD, HLP, fibromyalgia, and OA. She was seen in ER on 06/30/23 with c/o abdominal pain, N/V/D after starting macrobid 1 day ago for a UTI. She came in with lower abdominal pain, and found to be dehydrated and with low Mg+. She denied any dysuria, flank pain, hematuria on admission. Since admission last night she has not had any N/V/D. Abd. pain has resolved. She may need home O2 as she refuses to wear her CPAP at night and O2 drops at night. Will order continuous pulse ox. She is currently on 2lNC at 94%. Low Mg+ resolved. CHA improving. Leukocytosis resolved. Procal 4.750. Continue ceftriaxone and add zithromax. CT shows BLLL atelectasis. IVF stopped. She does have crackles in lung bases. She denies Cp, Abd. pain, N/V/D. 07/02/23 Pt resting in Bed. She is feeling much better today. She admits to not feeling well yesterday and not eating very much. She Her glucose dropped down to 45 this am. She drank a coke, ate peanut butter crackers, and ate breakfast. Glucose is stable now. She did qualify for home home. CM to set this up. Urine culture is pending. Will continue Antibiotocs OP. She would like to d/c today. She denies CP, SOB, abd. pain, N/V/D. - Vitals & Intake/Output Vital Signs: Vital Signs Temperature 97.1 F 07/02/23 11:19 Pulse Rate 67 07/02/23 11:19 Respiratory Rate 23 07/02/23 11:19 Blood Pressure 104/59 07/02/23 11:19 O2 Sat by Pulse Oximetry 96 07/02/23 11:19 Intake & Output: Intake & Output 06/29/23 06/30/23 07/01/23 07/02/23 11:59 11:59 11:59 11:59 Intake Total 1439 1442 Output Total 350 800 Balance 1089 642 Weight 57.6 kg - Lab Result Diagrams: 07/02/23 04:14 07/02/23 04:14 Lab Results-Last 24 Hrs: Lab Results-Last 24 Hours 07/02/23 07/02/23 07/02/23 Range/Units 04:14 04:14 05:56 WBC 5.8 (4.0-10.5) x10^3/uL RBC 3.10 L (4.1-5.4) x10^6/uL Hgb 9.6 L (12.0-16.0) g/dL Hct 29.2 L (35-47) % MCV 94.2 (78-100) fL MCH 31.0 (26-32) pg MCHC 32.9 (32-36) g/dL RDW 13.3 (11.5-14.0) % Plt Count 174 (150-450) x10^3/uL MPV 11.1 H (7.5-11.0) fL Sodium 137 (137-145) mmol/L Potassium 3.6 (3.5-5.1) mmol/L Chloride 109 H (98-107) mmol/L Carbon Dioxide 21 L (22-30) mmol/L Anion Gap 10.3 (5-15) MEQ/L BUN 19 H (7-17) mg/dL Creatinine 0.98 (0.52-1.04) mg/dL Estimated GFR 63.3 ML/MIN Glucose 45 L* (74-106) mg/dL POC Glucometer 41 L* (50 to 500) mg/dL Calcium 8.2 L (8.4-10.2) mg/dL Total Bilirubin 0.30 (0.2-1.3) mg/dL AST 29 (14-36) U/L ALT 17 (0-35) U/L Alkaline Phosphatase 100 (38-126) U/L Serum Total Protein 5.9 L (6.3-8.2) g/dL Albumin 3.1 L (3.5-5.0) g/dL 07/02/23 Range/Units 06:45 WBC (4.0-10.5) x10^3/uL RBC (4.1-5.4) x10^6/uL Hgb (12.0-16.0) g/dL Hct (35-47) % MCV (78-100) fL MCH (26-32) pg MCHC (32-36) g/dL RDW (11.5-14.0) % Plt Count (150-450) x10^3/uL MPV (7.5-11.0) fL Sodium (137-145) mmol/L Potassium (3.5-5.1) mmol/L Chloride (98-107) mmol/L Carbon Dioxide (22-30) mmol/L Anion Gap (5-15) MEQ/L BUN (7-17) mg/dL Creatinine (0.52-1.04) mg/dL Estimated GFR ML/MIN Glucose (74-106) mg/dL POC Glucometer 135 H (50 to 500) mg/dL Calcium (8.4-10.2) mg/dL Total Bilirubin (0.2-1.3) mg/dL AST (14-36) U/L ALT (0-35) U/L Alkaline Phosphatase (38-126) U/L Serum Total Protein (6.3-8.2) g/dL Albumin (3.5-5.0) g/dL Micro Results-Entire Visit: Microbiology 06/30/23 18:02 Urine Culture - Preliminary Urine, Void GRAM NEGATIVE ID AND SENSITIVITY PENDING - Radiology Exams Ordered Rad Exams-Entire Visit: Radiology Procedures Category Date Time Status ABDOMEN AND PELVIS W/0 CONTRAS [CT] Stat Exams 06/30/23 18:03 Completed - Procedures and Test Procedures and Tests throughout Hospitalization: Therapy Orders & Screens 06/30/23 21:37 Smoking Cessation Education ONCE Comment: Diagnosis: Acute renal injury, dehydration hypomagnesemia, UTI Smoking Status: Current every day smoker How long have you smoked: 50yrs Do you dip or chew tobacco: No ST Screen per Nursing Assess ONCE Comment: Protocol Order Physician Instructions: Greater than [address] Admission Screening Reason For Exam: Triggered on Admission Diagnosis: Acute renal injury, dehydration hypomagnesemia, UTI CVA/Dyshpagia/Aphasia: No Cognitive Deficits: No Dehydration/Nutrition Deficit: Yes Reflux: No Oral-Motor Difficulties: No Pneumonia: No Halfway Resident: No Total Points: 5 07/01/23 07:20 Oxygen NASAL CANNULA 2 lpm Comment: Diagnosis: Acute renal injury, dehydration hypomagnesemia, UTI 07/02/23 07:53 RT Miscellaneous Order ROUTINE Comment: Physician Instructions: as may need only at night. Reason For Exam: eval for home o2, was also on cont pulse ox Diagnosis: Acute renal injury, dehydration hypomagnesemia, UTI Discharge Exam General Appearance: no apparent distress, alert Neurologic Exam: alert, oriented x 3, cooperative, normal mood/affect, nml cerebellar function, sensation nml, No motor deficits Eye Exam: PERRL, EOMI, eyes nml inspection Ears, Nose, Throat Exam: normal ENT inspection, pharynx normal, moist mucous membranes Neck Exam: normal inspection, non-tender, supple, full range of motion Respiratory Exam: normal breath sounds, lungs clear, No respiratory distress Cardiovascular Exam: regular rate/rhythm, normal heart sounds Gastrointestinal/Abdomen Exam: soft, No tenderness, No mass Pelvic Exam: deferred Rectal Exam: deferred Back Exam: normal inspection, normal range of motion, No CVA tenderness, No vertebral tenderness Extremity Exam: normal inspection, normal range of motion Skin Exam: normal color, warm, dry Final Diagnosis/Problem List - Final Discharge Diagnosis/Problem (1) Urinary tract infection Current Visit: Yes Status: Acute Code(s): N39.0 - URINARY TRACT INFECTION, SITE NOT SPECIFIED (2) Atelectasis of both lungs Current Visit: Yes Status: Acute Code(s): J98.11 - ATELECTASIS (3) Abdominal pain Current Visit: Yes Status: Chronic Code(s): R10.9 - UNSPECIFIED ABDOMINAL PAIN (4) Acute renal injury Current Visit: Yes Status: Acute Code(s): N17.9 - ACUTE KIDNEY FAILURE, UNSPECIFIED (5) Enteritis Current Visit: Yes Status: Resolved Code(s): K52.9 - NONINFECTIVE GASTROENTERITIS AND COLITIS, UNSPECIFIED (6) Hypomagnesemia Current Visit: Yes Status: Resolved Code(s): E83.42 - HYPOMAGNESEMIA (7) Leukocytosis Current Visit: Yes Status: Resolved Code(s): D72.829 - ELEVATED WHITE BLOOD CELL COUNT, UNSPECIFIED (8) Nausea vomiting and diarrhea Current Visit: Yes Status: Resolved Code(s): R11.2 - NAUSEA WITH VOMITING, UNSPECIFIED; R19.7 - DIARRHEA, UNSPECIFIED (9) Tobacco abuse Current Visit: Yes Status: Chronic Assessment & Plan: (1) Urinary tract infection Current Visit: Yes Status: Acute Assessment & Plan: - UC pending - ceftriaxone Code(s): N39.0 - URINARY TRACT INFECTION, SITE NOT SPECIFIED (2) Atelectasis of both lungs Current Visit: Yes Status: Acute Assessment & Plan: - IVF stopped - as seen on CT - procal 4.750 - cont pulse ox for home o2 need - pt reports she is to wear cpap at [facility] but not compliant. 07/02 - qualified for home O2 at night Code(s): J98.11 - ATELECTASIS (3) Abdominal pain Current Visit: Yes Status: Chronic Assessment & Plan: - resolved - 2:2 enteritis Code(s): R10.9 - UNSPECIFIED ABDOMINAL PAIN (4) Acute renal injury Current Visit: Yes Status: Acute Assessment & Plan: - improving - Creat 1.12, baseline normal Code(s): N17.9 - ACUTE KIDNEY FAILURE, UNSPECIFIED (5) Enteritis Current Visit: Yes Status: Resolved Assessment & Plan: - as seen on CT - sxs resolved - CT abd./ pelvis with IV contrast 06/30/23 Impression: 1. New CT findings favor enteritis. Also new small hiatal hernia. 2. Again chronic findings including arteriosclerotic disease, chronic bony findings, and old granulomatous disease Code(s): K52.9 - NONINFECTIVE GASTROENTERITIS AND COLITIS, UNSPECIFIED (6) Hypomagnesemia Current Visit: Yes Status: Resolved Assessment & Plan: - resolved Code(s): E83.42 - HYPOMAGNESEMIA (7) Leukocytosis Current Visit: Yes Status: Resolved Assessment & Plan: - resolved Code(s): D72.829 - ELEVATED WHITE BLOOD CELL COUNT, UNSPECIFIED (8) Nausea vomiting and diarrhea Current Visit: Yes Status: Resolved Assessment & Plan: - resolved - prn meds Code(s): R11.2 - NAUSEA WITH VOMITING, UNSPECIFIED; R19.7 - DIARRHEA, UNSPECIFIED (9) Tobacco abuse Current Visit: Yes Status: Chronic Assessment & Plan: - advised cessation - refused nicotine patch. Code(s): Z72.0 - TOBACCO USE - Discharge Discharge Date: 07/02/23 Disposition: Home, Self-Care Condition: Stable Prescriptions: Continue Pravastatin Sodium [Pravachol] 40 mg PO HS Pregabalin [Lyrica 100Mg] 200 mg PO BID Aspirin [Aspirin EC] 81 mg PO DAILY Lisinopril 10 mg [Zestril 10 MG] 20 mg PO DAILY Omeprazole 20 MG [Prilosec 20 mg] 20 mg PO DAILY Meloxicam [Mobic] 7.5 mg PO DAILY Metoprolol Succinate 50 mg [Toprol Xl 50 MG] 50 mg PO BID Amlodipine Besylate 2.5 mg PO DAILY Instructions: Urinary Tract Infection, Adult (DC), Oxygen Therapy, Adult (DC) Additional Instructions: WEAR 2L/NC AT HOME- ESPECIALLY WHEN SLEEPING CALL [facility] WHEN YOU GET HOME AT [phone] SO THEY CAN DELIVER YOUR HOME CONCENTRATOR Follow up with: LUISA MURRY MD [Primary Care Provider] - 07/08/23 2:15 pm (at [facility])
== END 2023-07-02 12:10 | disposition home or self-care (01) ==
LOC: ED 16:39 → MED SURG 20:15
PROVIDERS: ADMIT Internal Medicine; ATTEND Internal Medicine
DX: N39.0 Urinary tract infection, site not specified (principal); J98.11 Atelectasis; R10.9 Unspecified abdominal pain; N17.9 Acute kidney failure, unspecified; K52.9 Noninfective gastroenteritis and colitis, unspecified; E83.42 Hypomagnesemia; D72.829 Elevated white blood cell count, unspecified; R11.2 Nausea with vomiting, unspecified; I10 Essential (primary) hypertension; I25.10 Atherosclerotic heart disease of native coronary artery without angina pectoris; E78.5 Hyperlipidemia, unspecified; I25.2 Old myocardial infarction; G47.30 Sleep apnea, unspecified; Z79.899 Other long term (current) drug therapy; Z20.828 Contact with and (suspected) exposure to other viral communicable diseases; Z72.0 Tobacco use
CPT/HCPCS: 0241U; 36000; 36415; 74176; 80053; 81001; 82947; 83690; 83735; 84145; 85025; 85027; 87077; 87086; 87186; 93268; 94760; 94762; 96374; 96375; 99284; J0456; J0696; J1644; J2270; J2405; J3475; Q3014; A9270-GY; G0378

== ENCOUNTER 2025-02-27 06:06 | Day surgery (SDC) | payer MEDICARE ==
[2025-02-27] MEDS ORDERED: Lactated Ringers 1,000 ML IV ONE (06:54)
[2025-02-27] MEDS: TETRACAINE 0.5% STERI-UNIT SOL OP ONE (06:59)
[2025-02-27] MEDS ORDERED: Lactated Ringers 1,000 ML IV SCH (07:00)
[2025-02-27] MEDS: Ak-Dilate OPHTHALMIC*** 0.71 ML, Cyclogyl 1% OPHTH SOL 0.71 ML, GATIFLOXACIN 0.5% OPHTH... OP SCH (07:00)
[2025-02-27 07:10] VITALS: RESP 18
[2025-02-27] MEDS: Lactated Ringers 1,000 ML IV SCH (07:10)
[2025-02-27] MEDS ORDERED: TETRACAINE 0.5% STERI-UNIT SOL OP ONE (07:15)
[2025-02-27 07:32] LABS: Calcium 9.3 mg/dL (8.4-10.2); Carbon Dioxide 29.0 mmol/L (22-30); Creatinine 1 1.16 mg/dL (0.52-1.04); EST GLOMERULAR FILTRATION RATE 51.0 ML/MIN; Glucose 91.0 mg/dL (74-106); Potassium 4.3 mmol/L (3.5-5.1)
[2025-02-27] MEDS ORDERED: propofoL IV ONE (08:24)
[2025-02-27 08:52] VITALS: TEMP 97.6
[2025-02-27 09:07] VITALS: BP 143/77; PULSE 62; O2SAT 95
[2025-02-27] MEDS ORDERED: VIGAMOX/BSS 0.15% SYR IO NR (09:15)
[2025-02-27] MEDS ORDERED: DEXTENZA OP NR (09:15)
[2025-02-27] MEDS ORDERED: Zofran 4 MG/2 ML VIAL IV PRN (09:15)
[2025-02-27] MEDS ORDERED: DEXMEDETOMIDINE 80 MCG/20ML-NS IV NR (09:15)
[2025-02-27] MEDS ORDERED: OMIDRIA 1-0.3% VIAL IO NR (09:15)
[2025-02-27] MEDS ORDERED: TRIAMCINOLONE 15 MG/ML INJ INTRAOP NR (09:15)
[2025-02-27] MEDS ORDERED: BETADINE 5% OPHTHALMIC 30 ML OP NR (09:15)
== END 2025-02-27 09:20 | disposition home or self-care (01) ==
LOC: SDC 06:06
PROVIDERS: ATTEND Ophthalmology
DX: H25.811 Combined forms of age-related cataract, right eye (principal)

== ENCOUNTER 2025-03-27 05:57 | Day surgery (SDC) | payer MEDICARE ==
[2025-03-27] MEDS ORDERED: Lactated Ringers 1,000 ML IV ONE (06:48)
[2025-03-27 07:03] VITALS: RESP 16
[2025-03-27] MEDS: Lactated Ringers 1,000 ML IV SCH (07:03)
[2025-03-27] MEDS: Ak-Dilate OPHTHALMIC*** 0.71 ML, Cyclogyl 1% OPHTH SOL 0.71 ML, GATIFLOXACIN 0.5% OPHTH... OP SCH (07:04)
[2025-03-27] MEDS: TETRACAINE 0.5% STERI-UNIT SOL OP ONE ×2 (07:04→07:17)
[2025-03-27 07:21] LABS: Calcium 9.3 mg/dL (8.4-10.2); Carbon Dioxide 25.0 mmol/L (22-30); Creatinine 1 1.13 mg/dL (0.52-1.04); EST GLOMERULAR FILTRATION RATE 52.7 ML/MIN; Glucose 92.0 mg/dL (74-106); Potassium 4.4 mmol/L (3.5-5.1)
[2025-03-27] MEDS ORDERED: propofoL IV ONE (09:52)
[2025-03-27 10:28] VITALS: TEMP 97.4
[2025-03-27 10:32] VITALS: BP 128/73
[2025-03-27 10:36] VITALS: PULSE 61; O2SAT 95
[2025-03-27] MEDS ORDERED: DEXMEDETOMIDINE 80 MCG/20ML-NS IV NR (11:30)
[2025-03-27] MEDS ORDERED: DEXTENZA OP NR (11:30)
[2025-03-27] MEDS ORDERED: BETADINE 5% OPHTHALMIC 30 ML OP NR (11:30)
[2025-03-27] MEDS ORDERED: VIGAMOX/BSS 0.15% SYR IO NR (11:30)
[2025-03-27] MEDS ORDERED: OMIDRIA 1-0.3% VIAL IO NR (11:30)
[2025-03-27] MEDS ORDERED: TRIAMCINOLONE 15 MG/ML INJ INTRAOP NR (11:30)
[2025-03-27] MEDS ORDERED: Zofran 4 MG/2 ML VIAL IV PRN (11:30)
== END 2025-03-27 10:45 | disposition home or self-care (01) ==
LOC: SDC 05:57
PROVIDERS: ATTEND Ophthalmology
DX: H25.812 Combined forms of age-related cataract, left eye (principal)